=== PATIENT | female | born 1990 | race Two or more races ===

== ENCOUNTER 2021-11-19 11:58 | Emergency (ER) | payer OTHER, SELFPAY ==
[2021-11-19 12:15] VITALS: BP 146/78; PULSE 78; RESP 19; TEMP 36.6; O2SAT 98; BMI 28.0
--- NOTE | 2021-11-19 12:40 | ED_ITS ---
HPI - Eye Problem General Chief complaint: Eye Problems Stated complaint: eye injury - work related Time Seen by Provider: 11/19/21 12:38 Source: patient Limitations: no limitations History of Present Illness HPI Narrative: This is a 31-year-old female who years ago had an injury to her left cornea, has had some irritation off and on since then for which he takes Visine. This morning the patient was at work when a client need her and the left thigh and since then she has had more tearing of her left thigh, some blurred vision on the left thigh, discomfort. She denies any loss of consciousness, nausea vomiting. Related Data Previous Rx's Medication Instructions Recorded ketorolac 0.5 % eye drops (Acular) 1 drp OPHTHALMIC (EYE) QID 3 Days 11/19/21 #3 ml polymyxin B sulfate 10,000 1 drp OPHTHALMIC (EYE) Q3H 7 Days 11/19/21 unit-trimethoprim 1 mg/mL eye #10 ml drops (Polytrim) Allergies Allergy/AdvReac Type Severity Reaction Status Date / Time No Known Allergies Allergy Verified 11/19/21 12:39 Review of Systems Constitutional: Constitutional: Reports as per HPI and Denies fever(s) Eyes: Eyes: Reports as per HPI and Reports eye pain ENT: Reports system reviewed and no additional complaints, except as documented [facility] Past Medical History Medical History (Updated 11/19/21 @ 13:23 by Shaquille Owens MD) Asthma Social History Social History Advance Directives: No Advance Directives Information Provided: No Patient : No Physical Exam Vital Signs: Vital Signs: Last Vital Signs Temp 98 F 11/19/21 12:15 Pulse 78 11/19/21 12:15 Resp 19 11/19/21 12:15 BP 146/78 H 11/19/21 12:15 Pulse Ox 98 11/19/21 12:15 BMI result Body Mass Index 28.0 Const: General: no acute distress Orientation/consciousness: patient oriented x3 HEENT: Head: Yes normal to inspection Eyes: Other: Left eye with mild conjunctival injection, tearing, knows of conjunctival hematoma, no laceration, no significant lid swelling, normal visual nichols. Mild erythema to skin below left eye, no ecchymosis. Retinal exam grossly normal, no evident of vitreous hemorrhage. Patient does have very long fake eyelashes, which makes it somewhat difficult to get close to the eye with the ophthalmoscope. Examination after placing fluorescein dye, with a Wood's lamp, shows no concerning uptake. Patient does have tearing of her eye. Pupils: Equal, round and reactive pupils present Resp: Effort & Inspection: normal respiratory effort Auscultation: clear to auscultation bilaterally Cardio: Rate: regular rate Rhythm: regular rhythm Heart sounds: S1 normal heart sound present, S2 normal heart sound present, no gallops, no murmurs and no rubs Neuro: General: patient oriented x3 Cranial nerves: Yes Equal, round and reactive pupils present Course Course Course Narrative: Patient's eye was examined after placing tetracaine 2 drops to left eye, and lysing fluorescein dye, examined with a Wood's lamp. Overall impression, mild orbital contusion, borderline evidence of corneal abrasion. Will treat with Polytrim, Acular. Discharge Plan Discharge Clinical Impression: Corneal abrasion Patient Disposition: Home, Self-Care Instructions: Corneal Abrasion (ED) Additional Instructions: Use of all atrium of the Justo drops as well as the Acular drops as prescribed. If not improved in 3 days, follow-up with ophthalmology Prescriptions: New polymyxin B sulf-trimethoprim [Polytrim] 10,000 unit- 1 mg/mL drops 1 drp ophthalmic (eye) Q3H 7 Days Qty: 10 0RF Rx Instructions: while awake; do not exceed 6 doses in 24 hours ketorolac [Acular] 0.5 % drops 1 drp ophthalmic (eye) QID 3 Days Qty: 3 0RF Referrals: Momo Murray [Physician] - 5 days (As needed) Interventions: ED Discharge Assessment Last Done: 11/19/21 14:41 Discharge Date/Time: 11/19/21 14:42
[2021-11-19] MEDS: Tetracaine HCl/PF 0.5% Oph Sol 4 ML DROPS 2 DROP EYE-LEFT (13:21)
[2021-11-19] MEDS: Fluorescein Sodium STRIP 1 STRIP EYE-LEFT (13:21)
== END 2021-11-19 14:42 | disposition home or self-care (01) ==
PROVIDERS: Emergency Provider Emergency Medicine
DX: S05.02XA Injury of conjunctiva and corneal abrasion without foreign body, left eye, initial encounter (principal); H57.12 Ocular pain, left eye; X58.XXXA Exposure to other specified factors, initial encounter; Y93.9 Activity, unspecified; Y92.9 Unspecified place or not applicable; Y99.0 Civilian activity done for income or pay; Z79.899 Other long term (current) drug therapy
CPT/HCPCS: 99283

== ENCOUNTER 2022-06-13 01:15 | Outpatient (REF) | payer OTHER, SELFPAY ==
[2022-06-13 01:47] LABS: COVID-19 Test Negative (Negative); IDNOW Serial# 55D5AD1C
== END 2022-06-13 01:16 | disposition home or self-care (01) ==
LOC: HO.LAB 01:15
PROVIDERS: Visit Provider Internal Medicine
DX: Z20.822 Contact with and (suspected) exposure to COVID-19 (principal)
CPT/HCPCS: 87635

== ENCOUNTER 2022-09-18 07:06 | Outpatient (REF) | payer OTHER, SELFPAY | END 2022-09-18 07:07 | disposition home or self-care (01) | LOC: HO.LAB 07:06 | PROVIDERS: Visit Provider Internal Medicine | DX: Z20.822 Contact with and (suspected) exposure to COVID-19 (principal) | CPT/HCPCS: 0241U ==

== ENCOUNTER 2022-10-06 10:42 | Emergency (ER) | payer OTHER, SELFPAY ==
[2022-10-06 10:48] VITALS: BP 122/81; PULSE 90; RESP 19; TEMP 36.6; O2SAT 99; BMI 28.5
--- OUTSIDE RECORDS SUMMARY | 2022-10-06 11:08 | XMS_ITS | Continuity of Care Document ---
:1990 Author Organization [facility] Address [address] [place] [address]- Care Team Providers Name Role Phone Ann-Marie Ritchie MD Primary Care Physician [place] [facility] [place] 03/09/20 - 03/09/[address] [address]- [facility] Discharge Disposition: A-D/C Home Attending Physician: Leta Jackson DO Admitting Physician: Leta Jackson DO Referring Physician: Not on Staff, Referring MD Allergies, Adverse Reactions, Alerts Substance Reaction Severity Status NKA Active Immunizations Given and Recorded Vaccine Date Status Refusal Reason tetanus/diphtheria/pertussis, acel(Tdap) 03/09/20 Given tetanus/diphtheria/pertussis, acel(Tdap) 04/04/14 Given tetanus/diphtheria/pertussis, acel(Tdap) 03/26/10 Given influenza virus vaccine, inactivated 04/24/14 Given influenza virus vaccine, inactivated 04/02/12 Given Human Papillomavirus Vaccine 03/26/10 Given Human Papillomavirus Vaccine 11/28/06 Given Human Papillomavirus Vaccine 09/25/06 Given Meningococcal Conjugate Vaccine 09/25/06 Given Medications Breast Pump See Instructions, # 1 units, Maintenance, Double electric breast pump Use as directed Dx: PostpartumCare, 05/08/14 6:05:59, Compound Start Date: 05/08/14 Status: OrderedEnsure Ensure, See Instructions, # 42 can, Refills 1, Tot. Refills 1, Maintenance, 1 can bid, weight loss in , 12/20/13 8:13:38, Compound Start Date: 12/20/13 Status: Orderedibuprofen 600 mg oral tablet 1 tablet = 600 mg, By Mouth, Every 6 hours, # 30 tablet, 3 Refills, Maintenance, 05/08/14 6:05:51, Tablet Start Date: 05/08/14 Status: OrderedMirena 52 mg intrauteral device 1 each = 52 mg, Vaginally, Once, Please bring your Mirena IUD when you deliver, # 1 each, 0 Refills,Soft Stop, 03/11/14 16:09:42, 1 each Vaginally Once,Instr:Please bring your Mirena IUD when you deliver Start Date: 03/11/14 Status: OrderedNexplanon 68 mg subcutaneous implant 1 each = 68 mg, Subcutaneous Infusion, Once, # 1 each, 0 Refills, Soft Stop, 05/06/14 18:27:03, 1 each Subcutaneous Infusion Once Start Date: 05/06/14 Status: OrderedPrenatal Multivitamins with Folic Acid 1 mg oral tablet 1 tablet, By Mouth, Daily, # 90 tablet, 0 Refills, Maintenance, 12/03/13 13:31:15, Tablet Start Date: 12/03/13 Status: Ordered Problem List Condition Effective Dates Status Health Status Informant Nexplanon insertion(Confirmed)1 05/10/14 Active Infection by Trichomonas(Confirmed) Active None(Confirmed) Active 1Lot #[id number] Vital Signs Most recent to oldest 1 2 3 [Reference Range]: Oxygen Saturation [94-100 %] 100 % 100 % (03/09/20 4:06 PM) (03/09/20 12:28 PM) Pulse Rate [55-90 bpm] 68 bpm 81 bpm (03/09/20 4:06 PM) (03/09/20 12:28 PM) Blood Pressure [90-138/55-84 108/52 mm Hg 122/72 mm Hg mm Hg] (03/09/20 4:06 PM) (03/09/20 12:28 PM) Respiratory Rate [16-30 20 br/min 18 br/min 18 br/mi n br/min] (03/09/20 4:06 PM) (03/09/20 3:28 PM) (03/09/20 3:2 8 PM) Temperature [96.8-100.4 DegF] 97.5 DegF 98.1 DegF (03/09/20 4:06 PM) (03/09/20 12:28 PM) Mode of Delivery (Oxygen) Room air Room air (03/09/20 4:06 PM) (03/09/20 12:28 PM) Blood pressure sites Arm, left (03/09/20 4:06 PM) Temperature Route Oral Oral (03/09/20 4:06 PM) (03/09/20 12:28 PM) Social History Social History Type Response Smoking Status Never smoker entered on: 10/19/13 Sex
--- OUTSIDE RECORDS SUMMARY | 2022-10-06 11:08 | XMS_ITS | Continuity of Care Document ---
:1990 Author Organization [facility] Address [address] [place] [id number]- Care Team Providers Name Role Phone Faby Dockery MD, Ann-Marie Primary Care Physician [place] [facility] [place] 09/23/19 - 09/23/[address] [address]- [facility] Encounter Diagnosis Influenza A (Final) - 09/23/19 Discharge Disposition: A-D/C Home Attending Physician: Nisa Parker MD Admitting Physician: Nisa Parker MD Referring Physician: Not on Staff, Referring MD Allergies, Adverse Reactions, Alerts Substance Reaction Severity Status NKA Active Immunizations Given and Recorded Vaccine Date Status Refusal Reason influenza virus vaccine, inactivated 04/24/14 Given influenza virus vaccine, inactivated 04/02/12 Given tetanus/diphtheria/pertussis, acel(Tdap) 04/04/14 Given tetanus/diphtheria/pertussis, acel(Tdap) 03/26/10 Given Human Papillomavirus Vaccine 03/26/10 Given Human [...] Infection by Trichomonas(Confirmed) Active None(Confirmed) Active 1Lot #[id number] Vital Signs Most recent to oldest [Reference 1 2 3 Range]: Weight 68.5 kg 68.5 kg (09/23/19 7:42 PM) (09/23/19 5:58 PM) Oxygen Saturation [94-100 %] 100 % 99 % 99 % (09/23/19 7:42 PM) (09/23/19 5:58 PM) (09/23/19 5:26 P M) Pulse Rate [55-90 bpm] 81 bpm 86 bpm 104 bpm (09/23/19 7:42 PM) (09/23/19 5:58 PM) *H* (09/23/19 5:26 PM) Blood Pressure [90-138/55-84 mm 131/79 mm Hg 118/72 mm Hg Hg] (09/23/19 7:42 PM) (09/23/19 5:58 PM) Respiratory Rate [16-30 br/min] 22 br/min 19 br/min 18 br/min (09/23/19 7:42 PM) (09/23/19 5:58 PM) (09/23/19 5:26 P M) Temperature [96.8-100.4 DegF] 98.3 DegF 99.3 DegF (09/23/19 7:42 PM) (09/23/19 5:58 PM) Mode of Delivery (Oxygen) Room air Room air Room a ir (09/23/19 7:42 PM) (09/23/19 5:58 PM) (09/23/19 5:26 P M) Blood pressure sites Arm, right Arm, right (09/23/19 7:42 PM) (09/23/19 5:58 PM) Temperature Route Oral Oral (09/23/19 7:42 PM) (09/23/19 5:58 PM) Dry Weight 68.5 kg 68.5 kg (09/23/19 7:42 PM) (09/23/19 5:58 PM) Weight Obtained Via Standing scale (09/23/19 5:58 PM) Dry Weight Obtained Via Standing scale (09/23/19 5:58 PM) Social History Social History Type Response Smoking Status Never smoker entered on: 10/19/13 Sex
--- NOTE | 2022-10-06 11:16 | ED_ITS ---
HPI - General Adult General Chief complaint: General Medical Stated complaint: Travis stuck in throat Time Seen by Provider: 10/06/22 11:16 Source: patient Mode of arrival: ambulatory Limitations: no limitations History of Present Illness HPI narrative: Patient is a 31 year old assigned female at with a history of foreign body stuck in esophagus presenting to the emergency department today with another episode of having a foreign body stuck in her esophagus. Patient states that she previously had travis stuck in her throat and had to have help getting it down. Patient states that she attempted to eat travis again this morning and feels as though it is stuck again. Patient states that she can feel it in her throat and massage it down, but it almost immediately comes back up. Patient states that she is able to drink water. Patient denies any dizziness, lightheadedness, abdominal pain, nausea, vomiting, fever, chills, blurry vision, double vision, loss of vision, chest pain, difficulty breathing, shortness of breath, back pain, night sweats, pain with urination, increased urinary frequency, increased urinary urgency, blood in her urine or stool, syncope or a near syncopal episode, recent trauma or falls, bowel incontinence, bladder incontinence, bowel retention, bladder retention, or any other complaints at this time. Onset (ago): hour(s) Severity: mild Severity scale (1-10): 3 Relieving factors: none Exacerbating factors: none Associated symptoms: denies other symptoms Treatments prior to arrival: none Related Data Previous Rx's Medication Instructions Recorded ketorolac 0.5 % eye drops (Acular) 1 drp ophthalmic (eye) QID 3 days 11/19/21 #3 mL polymyxin B sulfate 10,000 1 drp ophthalmic (eye) Q3H 7 days 11/19/21 unit-trimethoprim 1 mg/mL eye #10 mL drops (Polytrim) Allergies Allergy/AdvReac Type Severity Reaction Status Date / Time No Known Allergies Allergy Verified 10/06/22 10:48 Review of Systems Constitutional: Constitutional: Reports no additional constitutional complaints, Denies chills, Denies fever(s) and Denies night sweats Eyes: Eyes: Reports no additional eye complaints, Denies blurry vision, Denies change in vision, Denies diplopia, Denies eye discharge, Denies loss of vision and Denies eye pain ENT: Denies dizziness Comments: travis stuck in esophagus Cardiovascular: Cardiovascular: Reports no additional cardiovascular complaints, Denies chest pain, Denies lightheadedness, Denies Loss of Consci ousness and Denies dyspnea Respiratory: Respiratory: Reports no additional respiratory complaints and Denies dyspnea Gastrointestinal: Gastrointestinal: Reports no additional gastrointestinal complaints, Denies abdominal pain, Denies melena, Denies hematochezia, Denies change in bowel habits and Denies change in stool character Genitourinary: Genitourinary: Denies hematuria, Denies urinary frequency, Denies dysuria, Denies urinary incontinence, Denies urinary hesitancy and Denies urinary urgency Musculoskeletal: Musculoskeletal: Reports no additional musculoskeletal complaints, Denies numbness and Denies tingling Neurologic: Denies dizziness, Denies loss of vision, Denies numbness and Denies tingling Psychiatric: Psychiatric: Reports no additional psychiatric complaints Endocrine: Endocrine: Reports no additional endocrine complaints Hematologic/Lymphatic: Hematologic/Lymphatic: Reports no additional hematologic/lymphatic complaints Allergic/Immunologic: Allergic/Immunologic: Reports no additional allergic/immunologic complaints PMFSH Past Medical History Attestation statement: The following information was validated with the patient. Source: old records reviewed and nursing notes reviewed Medical History Asthma Social History Social History Advance Directives: No Advance Directives Information Provided: Yes Physical Exam ED Vital Signs: Vital Signs - 24 hr 10/06/22 10:48 Temperature 98 F Pulse Rate 90 Respiratory Rate 19 Blood Pressure 122/81 Pulse Oximetry 99 Oxygen Delivery Method Room Air BMI result Body Mass Index 28.5 Const General: cooperative, no acute distress, alert and awake Nutritional Appearance: well nourished Orientation/consciousness: patient oriented x3 Limitations: no limitations HENMT Head: Yes normal to inspection and Yes atraumatic Ears: hearing grossly normal bilaterally and external ears normal General nose exam: Normal external nose present, no nasal discharge noted and no epistaxis Face and sinus: Yes normal facial exam, No abrasion and No laceration Mouth: Normal oral and palatal mucosa present, no drooling and no muffled voice Eyes General: appearance normal, both eyes and all related structures Periorbital: periorbital findings normal Eyelids: Yes eyelids normal Conjunctivae: conjunctivae normal Pupils: Equal, round and reactive pupils present EOM: EOMs intact bilaterally Neck Neck: Yes normal visual inspection, Yes full ROM and Yes no lymphadenopathy Chest Chest palpation & inspection: normal inspection of the chest Resp Effort & Inspection: normal respiratory effort and able to speak in complete sentences GI Inspection: Yes normal to inspection Neuro General: patient oriented x3 and moves all extremities Cranial nerves: Yes Equal, round and reactive pupils present Cognition (Neuro): normal cognition Motor exam (neuro): 5/5 motor strength present throughout Sensory Exam: Normal double simultaneous stimulation for sensation Coordination: [id number] test normal Extrem General: Yes normal to inspection, Yes full ROM and Yes capillary refill normal Psych Appearance: grossly normal Mental Status: mental status grossly normal Affect: normal affect Attitude: cooperative Thought process: Normal thought process present Thought content: Normal thought content present Insight: Good insight present (Psych) Medications Administered Discontinued Medications Generic Name Dose Route Start Last Admin Trade Name Freq PRN Reason Stop Dose Admin Glucagon 1 mg 10/06/22 11:54 10/06/22 12:06 Glucagon,Human Recombinant 1 Mg/Ml Vial IVPUSH 10/06/22 11:55 1 mg ONCE ONE Administration Nitroglycerin 0.4 mg 10/06/22 11:54 10/06/22 12:06 Nitroglycerin 0.4 Mg Tab.Subl SUBLINGUAL 10/06/22 11:55 1 dose ONCE ONE Administration Medical Decision Making Medical Decision Making [facility] Narrative: Patient is a 31 year old assigned female at with a history of food bolus stuck in esophagus presenting to the emergency department today with another episode of a food bolus being stuck in her esophagus. Patient's physical exam was unremarkable. I explained my physical exam findings to the patient. I answered all questions asked by the patient. Patient received IV Glucagon and Sublingual nitro which she stated helped her symptoms significantly. Patient states that she felt the bolus pass, completely. I stressed the importance of the patient taking her medication as prescribed. I stressed the importance of the patient following up with her primary care provider and a GI specialist. I stressed the importance of the patient returning to the emergency department immediately if her symptoms were to worsen or if she were to develop any dizziness, shortness of breath, difficulty breathing, chest pain, blurry vision, loss of vision, nausea, vomiting, abdominal pain, fever, chills, back pain, or any other complaints. Patient verbalized agreement and understanding with this treatment plan and discharge. Differential Diagnosis Differential Diagnoses: The differential diagnosis associated with the presentation includes food bolus in esophagus Discharge Plan Discharge Clinical Impression: Esophagus, foreign body Patient Disposition: Home, Self-Care Instructions: Foreign Body Ingestion (ED) Additional Instructions: STOP EATING TRAVIS Follow up with your primary care provider and a GI specialist. Return to the emergency department immediately if your symptoms worsen or if you develop any dizziness, shortness of breath, difficulty breathing, chest pain, blurry vision, loss of vision, nausea, vomiting, abdominal pain, fever, chills, back pain, or any other complaints. Prescriptions: No Action polymyxin B sulf-trimethoprim [Polytrim] 10,000 unit- 1 mg/mL drops 1 drp ophthalmic (eye) Q3H 7 Days Qty: 10 0RF Rx Instructions: while awake; do not exceed 6 doses in 24 hours ketorolac [Acular] 0.5 % drops 1 drp ophthalmic (eye) QID 3 Days Qty: 3 0RF Referrals: [facility] [place] Gastroenterology Services [Provider Group] (Call to establish and follow up with a GI specialist. ) [facility] [place] Family Medicine [Provider Group] (Call to establish and follow up with a primary care provider. If you already have a primary care provider, please follow up with them. ) [facility] [place] Primary [facility] [Provider Group] (Call to establish and follow up with a primary care provider. If you already have a primary care provider, please follow up with them. ) [facility] [place] Primary [facility] [Provider Group] (Call to establish and follow up with a primary care provider. If you already have a primary care provider, please follow up with them. ) Stand Alone Forms: Work/School Release Interventions: ED Discharge Assessment Last Done: 10/06/22 12:59 Discharge Date/Time: 10/06/22 13:00 Print Language: Icelandic
[2022-10-06] MEDS: Nitroglycerin 0.4 MG TAB.SUBL SUBLINGUAL (12:06)
== END 2022-10-06 13:00 | disposition home or self-care (01) ==
PROVIDERS: Emergency Provider Emergency Medicine
DX: T18.128A Food in esophagus causing other injury, initial encounter (principal); X58.XXXA Exposure to other specified factors, initial encounter; Y93.89 Activity, other specified; Y92.019 Unspecified place in single-family (private) house as the place of occurrence of the external cause; Y99.9 Unspecified external cause status
CPT/HCPCS: 96374; 99282; 99284; J1610

== ENCOUNTER 2022-10-20 05:38 | Emergency (ER) | payer OTHER, SELFPAY ==
--- NOTE | ~2022-10-20 | XR_ITS ---
EXAMINATION: XR CHEST CLINICAL INFORMATION: Acute, right-sided chest pain. COMPARISON: None available. TECHNIQUE: 2 views of the chest were obtained. FINDINGS: No significant abnormality is noted involving the heart, lungs, mediastinum, bony thorax or soft tissues. XR/XR chest 2V IMPRESSION: No acute cardiopulmonary process.
--- NOTE | 2022-10-20 05:40 | ECG_ITS ---
Test Reason : palpation Blood Pressure : / mmHG Vent. Rate : 064 BPM Atrial Rate : 064 BPM P-R Int : 128 ms QRS Dur : 080 ms QT Int : 402 ms P-R-T Axes : 040 046 035 degrees QTc Int : 414 ms Normal sinus rhythm Normal ECG No previous ECGs available Referred By: Generic ED Physician Electronically Signed By:NANO FLEMING
[2022-10-20 05:50] VITALS: BP 157/96; PULSE 70; RESP 16; TEMP 36.9; O2SAT 98; BMI 25.7
[2022-10-20 05:57] LABS: Basophils Percent Auto 0.3 % (0-2); Eosinophils Absolute Auto 0.3 X10*3/uL (0.0-0.4); Eosinophils Percent Auto 2.8 % (0-4); Hematocrit 38.1 % (37.0-47.0); Hemoglobin 13.2 g/dl (12.0-16.0); Imm Gran Abs Auto 0.03 X10*3/uL (0.00-0.03); Imm Gran Pct Auto 0.3 % (0.0-0.4); Lymphocytes Absolute Auto 4.4 X10*3/uL (1.2-4.9); Lymphocytes Percent Auto 47.3 % (20-40); MANUAL DIFF FLAG NO; Mean Corpuscular HGB Conc 34.6 g/dl (31.0-35.0); Mean Corpuscular Hemoglobin 30.6 pg (27.0-33.0); Mean Corpuscular Volume 88.4 fL (80.0-98.0); Mean Platelet Volume 9.3 fL (9.4-12.3); Monocytes Absolute Auto 0.4 X10*3/uL (0.1-1.2); Monocytes Percent Auto 4.4 % (2-11); Neutrophils Absolute Auto 4.1 x10*3/uL (2.0-8.3); Neutrophils Percent Auto 44.9 % (45-73); Platelet Count 369 X10*3/uL (160-400); Red Blood Count 4.31 X10*6/uL (4.20-5.50); Red Cell Distribution Width 12.6 % (11.0-16.0); White Blood Count 9.2 X10*3/uL (4.8-10.8)
[2022-10-20 06:16] LABS: Anion Gap 18 (12-20); Blood Urea Nitrogen 17 mg/dL (9-16); Calcium 9.9 mg/dL (8.4-10.2); Carbon Dioxide 20 mmol/L (22-29); Chloride 106 mmol/L (96-108); Creatinine Clr Calc Pharmacy 104.8; Estimated Glomerular Filt Rate > 60; Glucose Random 101 mg/dL (60-115); Potassium 4.2 mmol/L (3.3-5.1); Sodium 140 mmol/L (135-145)
[2022-10-20 06:21] LABS: Troponin-I High Sensitivity < 3.5 ng/L (<3.5-17.0)
[2022-10-20 06:37] VITALS: BP 129/80; PULSE 61; RESP 15; TEMP 36.7; O2SAT 98
--- NOTE | 2022-10-20 07:13 | ED.CHESTPAIN ---
HPI - Chest Pain General Chief Complaint: Chest Pain Stated Complaint: heart problems Time Seen by Provider: 10/20/22 06:42 Source: patient Mode of arrival: ambulatory Limitations: no limitations History of Present Illness complaint: chest pain Onset (ago): hour(s) (3) Prior episodes: No Onset: during rest Pain location: left chest Pain radiation: back Severity: severe Quality: sharp and other (Pinching) Relieving factors: nothing Exacerbating factors: nothing Treatment prior to arrival: none Risk Factors Coronary artery disease risk factors: none Related Data Previous Rx's Medication Instructions Recorded meloxicam 15 mg tablet 15 mg PO DAILY #14 tabs 10/20/22 Allergies Allergy/AdvReac Type Severity Reaction Status Date / Time No Known Allergies Allergy Verified 10/20/22 05:53 [facility] Past Medical History Medical History Asthma Social History Social History Smoked in Last 30 Days: No Use of substances other than those prescribed or required for medical reasons: No Advance Directives: Yes Advance Directives Information Provided: Yes Advance Directives on File: No Physical Exam Vital Signs: Vital Signs: Last Vital Signs Temp 98.1 F 10/20/22 06:37 Pulse 61 10/20/22 06:37 Resp 15 10/20/22 06:37 BP 129/80 10/20/22 06:37 Pulse Ox 98 10/20/22 06:37 O2 Del Method Room Air 10/20/22 06:37 BMI result Body Mass Index 25.7 GEN: Well developed, no acute distress, alert, oriented HEENT: Normocephalic, atraumatic, normal external ears, nose appears normal, no oropharyngeal edema or exudates Eyes: Normal to appearance Neck: Supple, no lymphadenopathy Respiratory: Talks in complete sentences, no respiratory distress, clear to auscultation bilaterally Cardiovascular: Regular rate and rhythm, no murmurs rubs or gallops Abdomen: Soft, nontender, nondistended, no guarding, no rebound Back: No CVA tenderness Extremities: No clubbing cyanosis or edema Neurologic: No focal neurologic deficits, cranial nerves 2-12 intact, strength is 5/5 bilaterally, gait normal Skin: No rash Chest: Reproducible left anterior midclavicular line just inferior to the breast tenderness to palpation Course Course Course Narrative: 31-year-old female with no major medical problems presents with left-sided chest pain. Pain started at rest approximately 2-3 hours ago. Was a pinching sensation. When away after 2 hours. There are no other associated symptoms. Her examination revealed point tenderness to left anterior chest wall, mid clavicular line just inferior to the breast. This is most consistent with acute costochondritis. Laboratory analysis was negative cardiac enzymes. She has noted risk factors for PE. Her PERC score is 0. She has no lower extremity edema. Doubt PE or DVT. No indication for emergent CT angiogram, V/Q scan. Patient will be treated with anti-inflammatory pain medications and follow-up with her primary care provider as needed. Medical Decision Making Medical Decision Making [facility] Narrative: Patient presents with sharp pinching chest pain to left anterior inferior chest. This most likely secondary to acute costochondritis. The differential diagnosis includes costochondritis, chest wall pain, low suspicion for ACS, acute PE, perc criteria negative, pericarditis, myocarditis, dissection, pneumothorax, pneumonia or other infectious process. The presentation is not consistent with other acute emergent causes of chest pain at this time cardiac enzyme testing was already undertaken was negative. Chest x-ray has been ordered for further evaluation. Differential Diagnosis Differential Diagnoses: The differential diagnosis associated with the presentation includes (Costochondritis, chest wall pain, ACS, PE, pericarditis, myocarditis, pneumonia) Admission/Observation Consideration of admission/observation: Escalation of care including admission/observation considered Lab Data [facility] Lab Attestation statement: I reviewed the patient's lab results. 10/20/22 05:53 10/20/22 05:53 Labs: Lab Results 10/20/22 10/20/22 10/20/22 Range/Units 05:53 05:53 05:53 WBC 9.2 (4.8-10.8) X10*3/uL RBC 4.31 (4.20-5.50) X10*6/uL Hgb 13.2 (12.0-16.0) g/dl Hct 38.1 (37.0-47.0) % MCV 88.4 (80.0-98.0) fL MCH 30.6 (27.0-33.0) pg MCHC 34.6 (31.0-35.0) g/dl RDW 12.6 (11.0-16.0) % Plt Count 369 (160-400) X10*3/uL MPV 9.3 L (9.4-12.3) fL Immature Gran % (Auto) 0.3 (0.0-0.4) % Neut % (Auto) 44.9 L (45-73) % Lymph % (Auto) 47.3 H (20-40) % [place] % (Auto) 4.4 (2-11) % Eos % (Auto) 2.8 (0-4) % Baso % (Auto) 0.3 (0-2) % Lymph # (Auto) 4.4 (1.2-4.9) X10*3/uL [place] # (Auto) 0.4 (0.1-1.2) X10*3/uL Eos # (Auto) 0.3 (0.0-0.4) X10*3/uL Baso # (Auto) 0.0 (0.0-0.2) X10*3/uL Abs Immat Gran (auto) 0.03 (0.00-0.03) X10*3/uL Absolute Neuts (auto) 4.1 (2.0-8.3) x10*3/uL Absolute Nucleated RBC 0.000 (0.0-0.012) X10*3/uL Nucleated RBC % (auto) 0.0 (0.0-0.2) /100WBC Sodium 140 (135-145) mmol/L Potassium 4.2 (3.3-5.1) mmol/L Chloride 106 (96-108) mmol/L Carbon Dioxide 20 L (22-29) mmol/L Anion Gap 18 (12-20) BUN 17 H (9-16) mg/dL Creatinine 0.73 (0.5-1.4) mg/dL Estim Creat Clear Calc 104.8 Estimated GFR > 60 Random Glucose 101 (60-115) mg/dL Calcium 9.9 (8.4-10.2) mg/dL Troponin I High Sens < 3.5 (<3.5-17.0) ng/L Independent Interpretation I performed an independent interpretation of an: EKG (Normal sinus rhythm heart rate 64, normal intervals, no acute ST elevations depressions normal EKG) and Plain X-Ray Tests considered The following testing was considered but not selected: D-dimer, CT angiogram Prescription Management I considered prescription management with: Pain Medication Discharge Plan Discharge Clinical Impression: Costalchondritis Patient Disposition: Home, Self-Care Instructions: Costochondritis (ED) Prescriptions: New meloxicam 15 mg tablet 15 mg PO DAILY Qty: 14 0RF Discontinued polymyxin B sulf-trimethoprim [Polytrim] 10,000 unit- 1 mg/mL drops 1 drp ophthalmic (eye) Q3H 7 Days Qty: 10 0RF Rx Instructions: while awake; do not exceed 6 doses in 24 hours ketorolac [Acular] 0.5 % drops 1 drp ophthalmic (eye) QID 3 Days Qty: 3 0RF Referrals: Physician,Unknown J [Primary Care Provider] -
[2022-10-20 07:55] VITALS: BP 141/88; PULSE 64; RESP 18
[2022-10-20] MEDS: Ibuprofen 600 MG TABLET PO (07:57)
== END 2022-10-20 08:51 | disposition home or self-care (01) ==
PROVIDERS: Emergency Provider Emergency Medicine
DX: M94.0 Chondrocostal junction syndrome [Tietze] (principal); R00.2 Palpitations; R07.89 Other chest pain; Z79.899 Other long term (current) drug therapy
CPT/HCPCS: 36415; 71046; 80048; 84484; 85025; 93005; 99284; 99285

== ENCOUNTER 2023-02-20 08:44 | Emergency (ER) | payer MEDICAID, SELFPAY ==
[2023-02-20 08:47] VITALS: BP 129/92; PULSE 80; RESP 20; TEMP 36.1; O2SAT 97; BMI 30.1
--- NOTE | 2023-02-20 08:54 | ECG_ITS ---
Test Reason : CP Blood Pressure : / mmHG Vent. Rate : 072 BPM Atrial Rate : 072 BPM P-R Int : 120 ms QRS Dur : 088 ms QT Int : 404 ms P-R-T Axes : 035 032 017 degrees QTc Int : 442 ms Normal sinus rhythm with sinus arrhythmia Normal ECG When compared with ECG of 20-OCT-2022 05:41, No significant change was found Referred By: Generic ED Physician Electronically Signed By:NANO FLEMING
[2023-02-20 09:15] LABS: MANUAL DIFF FLAG NO
[2023-02-20 09:17] LABS: Appearance Urine Cloudy; Color Urine Yellow; Glucose Urine UA Negative (Negative); Leukocyte Esterase Urine Moderate (2+) (Negative); Nitrite Urine Negative (Negative); PH 5.5 (5.0-9.0); Specific Gravity - Urine 1.025 (1.005-1.025); UMIC TRIGGER UACC YES; Urine Blood Small (1+) (Negative); Urine Ketones Trace mg/dL (Negative); Urine Protein Negative (Neg-Trace)
[2023-02-20 09:18] LABS: Basophils Percent Auto 0.3 % (0-2); Eosinophils Absolute Auto 0.1 X10*3/uL (0.0-0.4); Hematocrit 38.6 % (37.0-47.0); Hemoglobin 13.2 g/dl (12.0-16.0); Imm Gran Abs Auto 0.06 X10*3/uL (0.00-0.03); Imm Gran Pct Auto 0.5 % (0.0-0.4); Lymphocytes Absolute Auto 3.3 X10*3/uL (1.2-4.9); Lymphocytes Percent Auto 30.3 % (20-40); Mean Corpuscular HGB Conc 34.2 g/dl (31.0-35.0); Mean Corpuscular Hemoglobin 30.3 pg (27.0-33.0); Mean Corpuscular Volume 88.7 fL (80.0-98.0); Mean Platelet Volume 9.7 fL (9.4-12.3); Monocytes Absolute Auto 0.5 X10*3/uL (0.1-1.2); Monocytes Percent Auto 4.1 % (2-11); Neutrophils Percent Auto 63.8 % (45-73); Platelet Count 343 X10*3/uL (160-400); Red Blood Count 4.35 X10*6/uL (4.20-5.50)
[2023-02-20 09:19] LABS: UPreg QC Valid YES; Urine Pregnancy NEGATIVE (NEGATIVE)
[2023-02-20 09:20] LABS: Bacteria Urine 4+ (None Seen); Hyaline Casts Urine 0-2 /LPF (0-2); Squamous Epithelial Cell Urine >20 /HPF (0-2); UACC Culture Trigger YES; WBC Urine 21-50 /HPF (0-5)
[2023-02-20 09:34] LABS: Alanine Aminotransferase 13 U/L (0-31); Albumin Level 4.5 g/dL (3.5-5.0); Alkaline Phosphatase 66 U/L (39-117); Anion Gap 17 (12-20); Aspartate Amino Transferase 11 U/L (5-31); Bilirubin Total 0.4 mg/dL (0.0-1.0); Blood Urea Nitrogen 10 mg/dL (9-16); Calcium 9.6 mg/dL (8.4-10.2); Carbon Dioxide 19 mmol/L (22-29); Chloride 108 mmol/L (96-108); Creatinine Clr Calc Pharmacy 118.2; Estimated Glomerular Filt Rate > 60; Glucose Random 96 mg/dL (60-115); Potassium 3.6 mmol/L (3.3-5.1); Sodium 140 mmol/L (135-145); Total Protein 7.6 g/dL (6.5-8.0)
--- NOTE | 2023-02-20 09:34 | ED.GENADULT ---
HPI - General Adult General Chief complaint: General Medical Stated complaint: congestion blurred vision nausea cough multi compl Time Seen by Provider: 02/20/23 09:18 Source: patient Limitations: no limitations History of Present Illness HPI narrative: 32-year-old female presents with multiple complaints. Symptoms started approximately 2 weeks ago. Symptoms include sinus congestion, headaches, nausea, vomiting, congestion, cough, shortness of breath, asthma related symptoms, nausea vomiting and diarrhea. Symptoms are severe. They are daily. There is no clear exacerbating features. They have been improved by some [id number] and prescription medications. 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 Unclear if there been any sick contacts. She has had some subjective fevers. Her diarrhea and vomiting have been nonbloody in nature. Patient reports not being able to eat or drink much due to consistent emesis. She is now feeling lightheaded as a result. Patient denies any abdominal pain. Related Data Previous Rx's Medication Instructions Recorded meloxicam 15 mg tablet 15 mg PO DAILY #14 tabs 10/20/22 levofloxacin 500 mg tablet 500 mg PO DAILY #7 tabs 02/20/23 ondansetron 4 mg disintegrating 4 mg PO Q8H PRN nausea and 02/20/23 tablet vomiting #10 tabs Allergies Allergy/AdvReac Type Severity Reaction Status Date / Time No Known Allergies Allergy Verified 10/20/22 05:53 Review of Systems Review of Systems: CONSTITUTIONAL: Denies weight loss, fever and chills. HEENT: Denies + in vision and hearing. RESPIRATORY: + SOB and cough. CV: Denies palpitations + CP. GI: + abdominal pain, nausea, vomiting and diarrhea. : Denies dysuria and urinary frequency. MSK: Denies myalgia and joint pain. SKIN: Denies rash and pruritus. NEUROLOGICAL: + headache - syncope. PSYCHIATRIC: Denies recent changes in mood. Denies anxiety and depression. All other ROS are negative unless in HPI PMFSH Past Medical History Medical History (Updated 02/20/23 @ 11:01 by Bhavin Estes MD) Asthma Social History Social History Smoked in Last 30 Days: No Use of substances other than those prescribed or required for medical reasons: No Advance Directives: No Advance Directives Information Provided: No Physical Exam ED Vital Signs: Vital Signs - 24 hr 02/20/23 08:47 02/20/23 10:40 Temperature 97.0 F 98.2 F Pulse Rate 80 60 Respiratory Rate 20 16 Blood Pressure 129/92 H 138/83 Pulse Oximetry 97 99 Oxygen Delivery Method Room Air Room Air BMI result Body Mass Index 30.1 GEN: Well developed, no acute distress, alert, oriented HEENT: Normocephalic, atraumatic, normal external ears, nose appears normal, no oropharyngeal edema or exudates Eyes: Normal to appearance Neck: Supple, no lymphadenopathy Respiratory: Talks in complete sentences, no respiratory distress, clear to auscultation bilaterally Cardiovascular: Regular rate and rhythm, no murmurs rubs or gallops Abdomen: Soft, nontender, nondistended, no guarding, no rebound Back: No CVA tenderness Extremities: No clubbing cyanosis or edema Neurologic: No focal neurologic deficits, cranial nerves 2-12 intact, strength is 5/5 bilaterally Skin: No rash Medical Decision Making Medical Decision Making [facility] Narrative: 32-year-old female presents with a significant number of complaints including congestion, cough, shortness of breath, nausea, vomiting, diarrhea, anorexia. Her examination is benign. This is suggestive of viral syndrome. This has been going on for quite some time. However, since a significant amount of her complaints or sinus related, patient may warrant antibiotics. I certainly believe that we can give her a significant amount of assistance in terms of hydration, antiemetics, analgesia, etc. to improve her current set of symptoms. In the meantime, differential diagnosis could include viral syndrome, bronchitis, sinusitis, systemic disease, inflammatory process. Will check routine laboratory analysis and provide analgesia, IV fluids, antiemetics, steroids, p.r.n. medications. Will re-evaluate the patient but I suspect she will be able to go home. For any significant abnormalities the lab testing, patient may warrant hospitalization. Differential Diagnosis Differential Diagnoses: The differential diagnosis associated with the presentation includes (See above) Admission/Observation Consideration of admission/observation: Escalation of care including admission/observation considered Lab Data [facility] Lab Attestation statement: I reviewed the patient's lab results. 02/20/23 09:10 02/20/23 09:10 Labs: Lab Results 02/20/23 02/20/23 02/20/23 Range/Units 09:10 09:10 09:10 WBC 11.0 H (4.8-10.8) X10*3/uL RBC 4.35 (4.20-5.50) X10*6/uL Hgb 13.2 (12.0-16.0) g/dl Hct 38.6 (37.0-47.0) % MCV 88.7 (80.0-98.0) fL MCH 30.3 (27.0-33.0) pg MCHC 34.2 (31.0-35.0) g/dl RDW 12.0 (11.0-16.0) % Plt Count 343 (160-400) X10*3/uL MPV 9.7 (9.4-12.3) fL Immature Gran % (Auto) 0.5 H (0.0-0.4) % Neut % (Auto) 63.8 (45-73) % Lymph % (Auto) 30.3 (20-40) % [place] % (Auto) 4.1 (2-11) % Eos % (Auto) 1.0 (0-4) % Baso % (Auto) 0.3 (0-2) % Lymph # (Auto) 3.3 (1.2-4.9) X10*3/uL [place] # (Auto) 0.5 (0.1-1.2) X10*3/uL Eos # (Auto) 0.1 (0.0-0.4) X10*3/uL Baso # (Auto) 0.0 (0.0-0.2) X10*3/uL Abs Immat Gran (auto) 0.06 H (0.00-0.03) X10*3/uL Absolute Neuts (auto) 7.0 (2.0-8.3) x10*3/uL Absolute Nucleated RBC 0.000 (0.0-0.012) X10*3/uL Nucleated RBC % (auto) 0.0 (0.0-0.2) /100WBC Sodium 140 (135-145) mmol/L Potassium 3.6 (3.3-5.1) mmol/L Chloride 108 (96-108) mmol/L Carbon Dioxide 19 L (22-29) mmol/L Anion Gap 17 (12-20) BUN 10 (9-16) mg/dL Creatinine 0.64 (0.5-1.4) mg/dL Estim Creat Clear Calc 118.2 Estimated GFR > 60 Random Glucose 96 (60-115) mg/dL Calcium 9.6 (8.4-10.2) mg/dL Total Bilirubin 0.4 (0.0-1.0) mg/dL AST 11 (5-31) U/L ALT 13 (0-31) U/L Alkaline Phosphatase 66 (39-117) U/L Troponin I High Sens < 2.7 (<3.5-17.0) ng/L Total Protein 7.6 (6.5-8.0) g/dL Albumin 4.5 (3.5-5.0) g/dL Urine Color Urine Appearance Urine pH (5.0-9.0) Ur Specific Alexis (1.005-1.025) Urine Protein (Neg-Trace) mg/dL Urine Glucose (UA) (Negative) mg/dL Urine Ketones (Negative) mg/dL Urine Blood (Negative) Urine Nitrite (Negative) Ur Leukocyte Esterase (Negative) Urine RBC (0-2) /HPF Urine WBC (0-5) /HPF Ur Squamous Epith Cells (0-2) /HPF Urine Bacteria (None Seen) Hyaline Casts (0-2) /LPF Urine Test (NEGATIVE) COVID-19 (JASBIR) (Negative) COVID-19 Clin Com 02/20/23 02/20/23 02/20/23 Range/Units 09:10 09:10 09:10 WBC (4.8-10.8) X10*3/uL RBC (4.20-5.50) X10*6/uL Hgb (12.0-16.0) g/dl Hct (37.0-47.0) % MCV (80.0-98.0) fL MCH (27.0-33.0) pg MCHC (31.0-35.0) g/dl RDW (11.0-16.0) % Plt Count (160-400) X10*3/uL MPV (9.4-12.3) fL Immature Gran % (Auto) (0.0-0.4) % Neut % (Auto) (45-73) % Lymph % (Auto) (20-40) % [place] % (Auto) (2-11) % Eos % (Auto) (0-4) % Baso % (Auto) (0-2) % Lymph # (Auto) (1.2-4.9) X10*3/uL [place] # (Auto) (0.1-1.2) X10*3/uL Eos # (Auto) (0.0-0.4) X10*3/uL Baso # (Auto) (0.0-0.2) X10*3/uL Abs Immat Gran (auto) (0.00-0.03) X10*3/uL Absolute Neuts (auto) (2.0-8.3) x10*3/uL Absolute Nucleated RBC (0.0-0.012) X10*3/uL Nucleated RBC % (auto) (0.0-0.2) /100WBC Sodium (135-145) mmol/L Potassium (3.3-5.1) mmol/L Chloride (96-108) mmol/L Carbon Dioxide (22-29) mmol/L Anion Gap (12-20) BUN (9-16) mg/dL Creatinine (0.5-1.4) mg/dL Estim Creat Clear Calc Estimated GFR Random Glucose (60-115) mg/dL Calcium (8.4-10.2) mg/dL Total Bilirubin (0.0-1.0) mg/dL AST (5-31) U/L ALT (0-31) U/L Alkaline Phosphatase (39-117) U/L Troponin I High Sens (<3.5-17.0) ng/L Total Protein (6.5-8.0) g/dL Albumin (3.5-5.0) g/dL Urine Color Yellow Urine Appearance Cloudy Urine pH 5.5 (5.0-9.0) Ur Specific [place] 1.025 (1.005-1.025) Urine Protein Negative (Neg-Trace) mg/dL Urine Glucose (UA) Negative (Negative) mg/dL Urine Ketones Trace (Negative) mg/dL Urine Blood Small (1+) H (Negative) Urine Nitrite Negative (Negative) Ur Leukocyte Esterase Moderate (2+) H (Negative) Urine RBC 6-10 H (0-2) /HPF Urine WBC 21-50 H (0-5) /HPF Ur Squamous Epith Cells >20 (0-2) /HPF Urine Bacteria 4+ (None Seen) Hyaline Casts 0-2 (0-2) /LPF Urine Test NEGATIVE (NEGATIVE) COVID-19 (JASBIR) Negative (Negative) COVID-19 Clin Com See Note Independent Interpretation I performed an independent interpretation of an: EKG (Normal sinus rhythm heart rate 72, sinus arrhythmia, normal intervals, no acute ST acute ST elevations or depressions) Prescription Management I considered prescription management with: Pain Medication, Antiviral and Antibiotic Discharge Plan Discharge Clinical Impression: Sinusitis, Nausea & vomiting, Generalized weakness, UTI (urinary tract infection) Patient Disposition: Home, Self-Care Instructions: Urinary Tract Infection in Women (DC), Sinusitis (ED), Acute Nausea and Vomiting (ED), Weakness (ED) Prescriptions: New levofloxacin 500 mg tablet 500 mg PO DAILY Qty: 7 0RF ondansetron 4 mg tablet,disintegrating 4 mg PO Q8H PRN (Reason: nausea and vomiting) Qty: 10 0RF No Action meloxicam 15 mg tablet 15 mg PO DAILY Qty: 14 0RF Referrals: Bhavin Estes MD [Emergency Provider] - (Primary care provider in 3-5 days)
[2023-02-20 09:42] LABS: Troponin-I High Sensitivity < 2.7 ng/L (<3.5-17.0)
[2023-02-20 09:52] LABS: COVID-19 Test Negative (Negative); IDNOW Serial# BCCEAD1C
[2023-02-20 10:40] VITALS: BP 138/83; PULSE 60; RESP 16; TEMP 36.8; O2SAT 99
[2023-02-20] MEDS: Acetaminophen 325 MG TABLET 975 MG PO (10:44)
[2023-02-20] MEDS: Ketorolac Tromethamine 15 MG/ML VIAL IVPUSH (10:46)
[2023-02-20] MEDS: dexAMETHasone sod phosphate 10 MG/ML VIAL IVPUSH (10:47)
[2023-02-20] MEDS: ondansetron HCL 4 MG/2 ML VIAL IVPUSH (10:49)
[2023-02-20] MEDS: levoFLOXacin/D5W 500 MG/100 ML PIGGYBACK 100 MG IV (10:55)
[2023-02-20] MEDS: 0.9 % Sodium Chloride 1,000 ML 999 ML IV (10:58)
[2023-02-20 12:00] VITALS: RESP 16
[2023-02-21 23:23] LABS: Lyme Abs Screen <0.90 index
== END 2023-02-20 12:26 | disposition home or self-care (01) ==
PROVIDERS: Emergency Provider Emergency Medicine
DX: N39.0 Urinary tract infection, site not specified (principal); J32.9 Chronic sinusitis, unspecified; R11.2 Nausea with vomiting, unspecified; R53.1 Weakness; R06.02 Shortness of breath; Z20.822 Contact with and (suspected) exposure to COVID-19; Z79.899 Other long term (current) drug therapy; J45.909 Unspecified asthma, uncomplicated
CPT/HCPCS: 36415; 80053; 81001; 81025; 84484; 85025; 86617; 86618; 87086; 87635; 93005; 96365; 96375; 99284; 99285; J1100; J1885; J1956; J2405

== ENCOUNTER → 2023-02-20 08:54 | Outpatient (BNV) | payer MEDICAID, SELFPAY | PROVIDERS: Emergency Provider Emergency Medicine; Visit Provider Internal Medicine | DX: R07.9 Chest pain, unspecified (principal) | CPT/HCPCS: 93010 ==

== ENCOUNTER 2023-02-23 22:15 | Emergency (ER) | payer MEDICAID, SELFPAY ==
[2023-02-23 22:23] VITALS: BP 108/75; PULSE 86; RESP 18; TEMP 36.6; O2SAT 96; BMI 29.4
[2023-02-23 22:53] LABS: MANUAL DIFF FLAG NO
[2023-02-23 22:56] LABS: Basophils Percent Auto 0.3 % (0-2); Eosinophils Absolute Auto 0.1 X10*3/uL (0.0-0.4); Eosinophils Percent Auto 0.8 % (0-4); Hematocrit 40.2 % (37.0-47.0); Hemoglobin 13.5 g/dl (12.0-16.0); Imm Gran Abs Auto 0.06 X10*3/uL (0.00-0.03); Imm Gran Pct Auto 0.5 % (0.0-0.4); Lymphocytes Absolute Auto 4.2 X10*3/uL (1.2-4.9); Lymphocytes Percent Auto 36.1 % (20-40); Mean Corpuscular HGB Conc 33.6 g/dl (31.0-35.0); Mean Corpuscular Hemoglobin 29.9 pg (27.0-33.0); Mean Corpuscular Volume 88.9 fL (80.0-98.0); Mean Platelet Volume 9.6 fL (9.4-12.3); Monocytes Absolute Auto 0.5 X10*3/uL (0.1-1.2); Monocytes Percent Auto 4.1 % (2-11); Neutrophils Absolute Auto 6.7 x10*3/uL (2.0-8.3); Neutrophils Percent Auto 58.2 % (45-73); Platelet Count 339 X10*3/uL (160-400); Red Blood Count 4.52 X10*6/uL (4.20-5.50); Red Cell Distribution Width 12.4 % (11.0-16.0); White Blood Count 11.5 X10*3/uL (4.8-10.8)
[2023-02-23 23:11] LABS: Alanine Aminotransferase 11 U/L (0-31); Albumin Level 4.5 g/dL (3.5-5.0); Alkaline Phosphatase 59 U/L (39-117); Anion Gap 17 (12-20); Aspartate Amino Transferase 11 U/L (5-31); Bilirubin Total 0.2 mg/dL (0.0-1.0); Blood Urea Nitrogen 15 mg/dL (9-16); Calcium 9.7 mg/dL (8.4-10.2); Carbon Dioxide 21 mmol/L (22-29); Chloride 106 mmol/L (96-108); Creatinine Clr Calc Pharmacy 105.2; Estimated Glomerular Filt Rate > 60; Glucose Random 107 mg/dL (60-115); Sodium 140 mmol/L (135-145); Total Protein 7.4 g/dL (6.5-8.0)
[2023-02-23 23:13] LABS: COVID-19 Test Negative (Negative); IDNOW Serial# 6674DD1D
--- NOTE | 2023-02-24 01:10 | ED.GENADULT ---
HPI - General Adult General Chief complaint: General Medical Stated complaint: Sinusitis/n/v/weakness/UTI Time Seen by Provider: 02/24/23 00:33 Source: patient Mode of arrival: ambulatory Limitations: no limitations History of Present Illness HPI narrative: Patient had mild cold symptoms diagnosed as UTI on 02/20 urine culture was contaminated started on Levaquin comes here with diarrhea and painful hemorrhoid Related Data Previous Rx's Medication Instructions Recorded meloxicam 15 mg tablet 15 mg PO DAILY #14 tabs 10/20/22 levofloxacin 500 mg tablet 500 mg PO DAILY #7 tabs 02/20/23 ondansetron 4 mg disintegrating 4 mg PO Q8H PRN nausea and 02/20/23 tablet vomiting #10 tabs dicyclomine 20 mg tablet 20 mg PO TID PRN abdominal pain 02/24/23 #14 tabs hydrocortisone acetate 25 mg 25 mg MT BID #12 ea 02/24/23 rectal suppository (Anusol-HC) oxycodone 5 mg tablet 5 mg PO Q6H PRN pain #20 tabs 02/24/23 Allergies Allergy/AdvReac Type Severity Reaction Status Date / Time No Known Allergies Allergy Verified 02/23/23 22:23 Review of Systems Review of Systems: Yes all other systems are reviewed and are negative [facility] Past Medical History Medical History Asthma Social History Social History Alcohol intake: never Smoked in Last 30 Days: No Use of substances other than those prescribed or required for medical reasons: No Advance Directives: No Advance Directives Information Provided: Yes Patient : No Physical Exam ED Vital Signs: Vital Signs - 24 hr 02/23/23 22:23 Temperature 97.8 F Pulse Rate 86 Respiratory Rate 18 Blood Pressure 108/75 Pulse Oximetry 96 Oxygen Delivery Method Room Air BMI result Body Mass Index 29.4 Appearance: Alert. Oriented X3. No acute distress. ENT: Pharynx normal. Oral Mucosa moist Neck: Normal inspection. Neck supple. CVS: Normal heart rate and rhythm. Pulses normal. Respiratory: No respiratory distress. Equal air entry bilateral, no wheezing/rales/rhonchi Abdomen: Soft and nontender. Bowel sounds are present, no mass palpable, no CVA tenderness rectal: Thrombosed hemorrhoid painful Skin: Skin warm and dry. Normal skin color. Normal skin turgor. Extremities: No lower extremity edema. No calf tenderness Neuro: Oriented X 3. No motor deficit. Procedures Abscess I/D Site: carmine-rectal (Thrombosed external hemorrhoid) and other Local Anesthetic: lidocaine 1% Amount of anesthesia used (mL): 4 Technique: incised with blade Medical Decision Making Lab Data 02/23/23 22:47 02/23/23 22:47 Labs: Lab Results 02/23/23 02/23/23 02/23/23 Range/Units 22:43 22:47 22:47 WBC 11.5 H (4.8-10.8) X10*3/uL RBC 4.52 (4.20-5.50) X10*6/uL Hgb 13.5 (12.0-16.0) g/dl Hct 40.2 (37.0-47.0) % MCV 88.9 (80.0-98.0) fL MCH 29.9 (27.0-33.0) pg MCHC 33.6 (31.0-35.0) g/dl RDW 12.4 (11.0-16.0) % Plt Count 339 (160-400) X10*3/uL MPV 9.6 (9.4-12.3) fL Immature Gran % (Auto) 0.5 H (0.0-0.4) % Neut % (Auto) 58.2 (45-73) % Lymph % (Auto) 36.1 (20-40) % [place] % (Auto) 4.1 (2-11) % Eos % (Auto) 0.8 (0-4) % Baso % (Auto) 0.3 (0-2) % Lymph # (Auto) 4.2 (1.2-4.9) X10*3/uL [place] # (Auto) 0.5 (0.1-1.2) X10*3/uL Eos # (Auto) 0.1 (0.0-0.4) X10*3/uL Baso # (Auto) 0.0 (0.0-0.2) X10*3/uL Abs Immat Gran (auto) 0.06 H (0.00-0.03) X10*3/uL Absolute Neuts (auto) 6.7 (2.0-8.3) x10*3/uL Absolute Nucleated RBC 0.000 (0.0-0.012) X10*3/uL Nucleated RBC % (auto) 0.0 (0.0-0.2) /100WBC Sodium 140 (135-145) mmol/L Potassium 4.0 (3.3-5.1) mmol/L Chloride 106 (96-108) mmol/L Carbon Dioxide 21 L (22-29) mmol/L Anion Gap 17 (12-20) BUN 15 (9-16) mg/dL Creatinine 0.71 (0.5-1.4) mg/dL Estim Creat Clear Calc 105.2 Estimated GFR > 60 Random Glucose 107 (60-115) mg/dL Calcium 9.7 (8.4-10.2) mg/dL Total Bilirubin 0.2 (0.0-1.0) mg/dL AST 11 (5-31) U/L ALT 11 (0-31) U/L Alkaline Phosphatase 59 (39-117) U/L Total Protein 7.4 (6.5-8.0) g/dL Albumin 4.5 (3.5-5.0) g/dL COVID-19 (JASBIR) Negative (Negative) COVID-19 Clin Com See Note Discharge Plan Discharge Clinical Impression: External hemorrhoid, thrombosed Patient Disposition: Home, Self-Care Instructions: Hemorrhoids (DC) Additional Instructions: Avoid constipation/straining Anusol suppository twice daily till heals completely Follow with PCP/surgeon Stop levaquin Prescriptions: New hydrocortisone acetate [Anusol-HC] 25 mg suppository 25 mg MT BID Qty: 12 0RF dicyclomine 20 mg tablet 20 mg PO TID PRN (Reason: abdominal pain) Qty: 14 0RF oxycodone 5 mg tablet 5 mg PO Q6H PRN (Reason: pain) Qty: 20 0RF Rx Instructions: Partial Fill upon patient request. No Action levofloxacin 500 mg tablet 500 mg PO DAILY Qty: 7 0RF ondansetron 4 mg tablet,disintegrating 4 mg PO Q8H PRN (Reason: nausea and vomiting) Qty: 10 0RF meloxicam 15 mg tablet 15 mg PO DAILY Qty: 14 0RF Referrals: Jonathan Carey MD [Physician] - 1 week
[2023-02-24] MEDS: Dicyclomine HCl 10 MG CAPSULE 20 MG PO (01:56)
[2023-02-24] MEDS: oxyCODONE HCl Immed Release 5 MG TABLET 10 MG PO (01:57)
[2023-02-24] MEDS: Lidocaine HCl 1 % MPF 2 ML VIAL INFILTRATI ×2 (01:57→01:58)
== END 2023-02-24 02:20 | disposition home or self-care (01) ==
PROVIDERS: Emergency Provider Internal Medicine
DX: K64.5 Perianal venous thrombosis (principal)
CPT/HCPCS: 46083; 80053; 85025; 87635; 99284

== ENCOUNTER 2023-08-24 07:05 | Emergency (ER) | payer MEDICAID, SELFPAY ==
[2023-08-24 07:07] VITALS: BP 132/69; PULSE 63; RESP 16; TEMP 36.3; O2SAT 97; BMI 29.8
--- NOTE | 2023-08-24 07:45 | PC.NURSE ---
Alert and oriented, reports dyed hair 3 days ago and woke up with a sore scalp, scabs on scalp, a headache, sore throat, and swelling on right side of neck. Reports went to dentist yesterday and xrays were taken which showed no infection. Reports some sob.
--- NOTE | 2023-08-24 07:51 | ED_ITS ---
HPI - General Adult General Chief complaint: General Medical Stated complaint: Infection Time Seen by Provider: 08/24/23 07:51 History of Present Illness HPI narrative: The patient is a 32-year-old female who says that for 5 days ago she used a hair dye. She then developed an itchy rash on the back of her neck. She subsequently developed a lot of pain on the right side of her neck and her face. Yesterday she went to see a dentist because she thought the pain might be from a tooth but the dentist did not think there was any dental problem. 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 She was working and having ongoing discomfort. She says she has been taking Tylenol very frequently. She ultimately told her nursing automobile body repair supervisor what she was experiencing and she was. No definite fever. Patient says that all of her symptoms are on the right side. She has a sense of right-sided tooth pain in multiple teeth. She has right-sided neck pain and right-sided ear pain. No fever, sweats, chills. Patient says she has not currently on control. She has not missed any periods. Last intercourse was 2 or 3 weeks ago. She is not trying to get but she is also not on any contraceptives. Related Data Previous Rx's Medication Instructions Recorded meloxicam 15 mg tablet 15 mg PO DAILY #14 tabs 10/20/22 levofloxacin 500 mg tablet 500 mg PO DAILY #7 tabs 02/20/23 ondansetron 4 mg disintegrating 4 mg PO Q8H PRN nausea and 02/20/23 tablet vomiting #10 tabs dicyclomine 20 mg tablet 20 mg PO TID PRN abdominal pain 02/24/23 #14 tabs hydrocortisone acetate 25 mg 25 mg MI BID #12 ea 02/24/23 rectal suppository (Anusol-HC) oxycodone 5 mg tablet 5 mg PO Q6H PRN pain #20 tabs 02/24/23 cefadroxil 1 gram tablet 1,000 mg PO BID #14 tabs 08/24/23 valacyclovir 1 gram tablet 1,000 mg PO TID #21 tabs 08/24/23 Allergies Allergy/AdvReac Type Severity Reaction Status Date / Time No Known Allergies Allergy Verified 02/23/23 22:23 Review of Systems 2 Review of Systems: Yes all other systems are reviewed and are negative PMFSH Past Medical History Medical History Asthma Social History Social History Alcohol intake: never Advance Directives: No Advance Directives Information Provided: No Physical Exam ED Vital Signs: Vital Signs - 24 hr 08/24/23 07:07 Temperature 97.4 F Pulse Rate 63 Respiratory Rate 16 Blood Pressure 132/69 Pulse Oximetry 97 Oxygen Delivery Method Room Air BMI result Body Mass Index 29.8 Const Other: Patient looks as if she has an ordinarily healthy 32-year-old. She does not appear in obvious distress at rest. HENMT Other: The head and face are normal to inspection. There is a rash at the posterior neck on the right side which looks like a collection of dried vesicles. On her intraoral exam there are no abnormalities seen. No willing. Dentition appears normal. No trismus. Ears: TM's normal bilaterally and Abnormal EAC present Eyes Other: Pupils are round equal, conjunctivae clear, extraocular movements intact, no ocular abnormalities. Neck Other: The patient has a rash on the posterior aspect of the neck which is characterized primarily by a large clump of dry looking vesicles to the right of the midline. There is some tiny satellite lesions that cross the midline but the lesions are largely and primarily on the right side. There is no nuchal rigidity. The patient is exquisitely tender with palpation of the right side of the neck in the region of the anterior and posterior cervical chains but I do not appreciate any discrete lymph nodes. Resp Effort & Inspection: normal respiratory effort Auscultation: clear to auscultation bilaterally Cardio Rate: regular rate Rhythm: regular rhythm Heart sounds: S1 normal heart sound present and S2 normal heart sound present Skin Other: Is a patch of fairly dried vesicles on the back of the patient's neck mostly to the right side. The bulk of the lesions are to the right of the midline. Some tiny lesions may be on the left side of the midline. Neuro Other: Awake, alert, oriented, appropriate, neurologically intact Extrem Other: No extremity lesions Medical Decision Making Medical Decision Making MDM Narrative: The patient presents with a rash on the back of her neck and a complaint of severe pain on the right side of her face and neck. She is exquisitely tender on the right side of the neck but I do not appreciate any masses. Labs show a normal white count, sed rate, and CRP. My concern for any kind of deep space neck infection is very low. The rash on the back of the neck has the appearance of dried vesicles. Given the location of the rash and the unilateral nature of the symptoms shingles is suggested but this is not definitely a case of shingles. The patient believes the rash is a consequence of an allergic reaction to hair dye 4 days ago. Overall given the reassuring labs the I think the patient can be managed as an outpatient. She will be placed on a course of valacyclovir in case this is an unusual presentation of shingles. She will also be placed on a case of cefadroxil case there is some bacterial infectious component to her presentation although I think this is not very likely. She will be discharged with work note for the next couple of days. She should follow up with her PCP. Return to the ER if worse. The patient's serum beta-hCG was 7. I explained to her that this is probably indicative of a non state but not definitively so. She should repeat a home test a few days. Lab Data 08/24/23 08:53 08/24/23 08:53 Labs: Lab Results 08/24/23 Range/Units 08:53 WBC 7.4 (4.8-10.8) X10*3/uL RBC 4.40 (4.20-5.50) X10*6/uL Hgb 13.3 (12.0-16.0) g/dl Hct 39.0 (37.0-47.0) % MCV 88.6 (80.0-98.0) fL MCH 30.2 (27.0-33.0) pg MCHC 34.1 (31.0-35.0) g/dl RDW 12.8 (11.0-16.0) % Plt Count 354 (160-400) X10*3/uL MPV 9.3 L (9.4-12.3) fL Immature Gran % (Auto) 0.4 (0.0-0.4) % Neut % (Auto) 44.0 L (45-73) % Lymph % (Auto) 49.7 H (20-40) % [place] % (Auto) 3.8 (2-11) % Eos % (Auto) 1.7 (0-4) % Baso % (Auto) 0.4 (0-2) % Lymph # (Auto) 3.7 (1.2-4.9) X10*3/uL [place] # (Auto) 0.3 (0.1-1.2) X10*3/uL Eos # (Auto) 0.1 (0.0-0.4) X10*3/uL Baso # (Auto) 0.0 (0.0-0.2) X10*3/uL Abs Immat Gran (auto) 0.03 (0.00-0.03) X10*3/uL Absolute Neuts (auto) 3.3 (2.0-8.3) x10*3/uL Absolute Nucleated RBC 0.000 (0.0-0.012) X10*3/uL Nucleated RBC % (auto) 0.0 (0.0-0.2) /100WBC Sodium 138 (135-145) mmol/L Potassium 4.2 (3.3-5.1) mmol/L Chloride 105 (96-108) mmol/L Carbon Dioxide 24 (22-29) mmol/L Anion Gap 13 (12-20) BUN 11 (9-16) mg/dL Creatinine 0.68 (0.5-1.4) mg/dL Estim Creat Clear Calc 110.8 Estimated GFR > 60 Random Glucose 114 (60-115) mg/dL Calcium 9.7 (8.4-10.2) mg/dL Total Bilirubin 0.3 (0.0-1.0) mg/dL Direct Bilirubin 0.1 (0.0-0.5) mg/dL AST 15 (5-31) U/L ALT 15 (0-31) U/L Alkaline Phosphatase 61 (39-117) U/L C-Reactive Protein 0.29 (< or = 0.50) mg/dL Total Protein 7.6 (6.5-8.0) g/dL Albumin 4.6 (3.5-5.0) g/dL Beta HCG, Quant 7 mIU/mL Discharge Plan Discharge Clinical Impression: Neck pain on right side, Rash Patient Disposition: Home, Self-Care Instructions: Shingles (ED) Additional Instructions: The rash on the back of your neck to some degree resembles the rash of shingles. Therefore you have been prescribed valacyclovir. Please take this 3 times a day. Alternatively there may be some degree of a bacterial infection so you have been prescribed cefadroxil, an antibiotic. Please take this 2 times a day. Use acetaminophen (Tylenol) as needed for pain. Your test was equivocal. It was possibly very minimally positive. I think you should probably do a home test in a couple of days to confirm whether you are or not. If you are confirmed to not be you may also use ibuprofen. Follow up soon with your regular doctor. No work tonight. Return to the emergency room if significantly worse. Prescriptions: New cefadroxil 1 gram tablet 1,000 mg PO BID Qty: 14 0RF valacyclovir 1 gram tablet 1,000 mg PO TID Qty: 21 0RF No Action levofloxacin 500 mg tablet 500 mg PO DAILY Qty: 7 0RF ondansetron 4 mg tablet,disintegrating 4 mg PO Q8H PRN (Reason: nausea and vomiting) Qty: 10 0RF meloxicam 15 mg tablet 15 mg PO DAILY Qty: 14 0RF hydrocortisone acetate [Anusol-HC] 25 mg suppository 25 mg MI BID Qty: 12 0RF dicyclomine 20 mg tablet 20 mg PO TID PRN (Reason: abdominal pain) Qty: 14 0RF oxycodone 5 mg tablet 5 mg PO Q6H PRN (Reason: pain) Qty: 20 0RF Rx Instructions: Partial Fill upon patient request. Referrals: Gustavo Juárez MD [Physician] - (rash, possible shingles) Stand Alone Forms: Work/School Release Interventions: ED Discharge Assessment Last Done: 08/24/23 10:33 Discharge Date/Time: 08/24/23 10:33
[2023-08-24 08:58] LABS: Basophils Percent Auto 0.4 % (0-2); Eosinophils Absolute Auto 0.1 X10*3/uL (0.0-0.4); Eosinophils Percent Auto 1.7 % (0-4); Hemoglobin 13.3 g/dl (12.0-16.0); Imm Gran Abs Auto 0.03 X10*3/uL (0.00-0.03); Imm Gran Pct Auto 0.4 % (0.0-0.4); Lymphocytes Absolute Auto 3.7 X10*3/uL (1.2-4.9); Lymphocytes Percent Auto 49.7 % (20-40); MANUAL DIFF FLAG NO; Mean Corpuscular HGB Conc 34.1 g/dl (31.0-35.0); Mean Corpuscular Hemoglobin 30.2 pg (27.0-33.0); Mean Corpuscular Volume 88.6 fL (80.0-98.0); Mean Platelet Volume 9.3 fL (9.4-12.3); Monocytes Absolute Auto 0.3 X10*3/uL (0.1-1.2); Monocytes Percent Auto 3.8 % (2-11); Neutrophils Absolute Auto 3.3 x10*3/uL (2.0-8.3); Platelet Count 354 X10*3/uL (160-400); Red Cell Distribution Width 12.8 % (11.0-16.0); White Blood Count 7.4 X10*3/uL (4.8-10.8)
[2023-08-24 09:15] LABS: Alanine Aminotransferase 15 U/L (0-31); Albumin Level 4.6 g/dL (3.5-5.0); Alkaline Phosphatase 61 U/L (39-117); Anion Gap 13 (12-20); Aspartate Amino Transferase 15 U/L (5-31); Bilirubin Direct 0.1 mg/dL (0.0-0.5); Bilirubin Total 0.3 mg/dL (0.0-1.0); Blood Urea Nitrogen 11 mg/dL (9-16); C Reactive Protein 0.29 mg/dL (< or = 0.50); Calcium 9.7 mg/dL (8.4-10.2); Carbon Dioxide 24 mmol/L (22-29); Chloride 105 mmol/L (96-108); Creatinine Clr Calc Pharmacy 110.8; Estimated Glomerular Filt Rate > 60; Glucose Random 114 mg/dL (60-115); Potassium 4.2 mmol/L (3.3-5.1); Sodium 138 mmol/L (135-145); Total Protein 7.6 g/dL (6.5-8.0)
[2023-08-24 09:21] LABS: HCG Quantitative 7 mIU/mL
== END 2023-08-24 10:33 | disposition home or self-care (01) ==
PROVIDERS: Emergency Provider Emergency Medicine
DX: M54.2 Cervicalgia (principal); R21 Rash and other nonspecific skin eruption
CPT/HCPCS: 36415; 80048; 80076; 84702; 85025; 86140; 99283; 99284

== ENCOUNTER 2024-07-19 06:46 | Emergency (ER) | payer MEDICAID, SELFPAY ==
[2024-07-19 06:48] VITALS: BP 124/82; PULSE 75; RESP 18; TEMP 36.7; O2SAT 94; BMI 30.7
[2024-07-19 07:16] LABS: MANUAL DIFF FLAG NO
[2024-07-19 07:19] LABS: Appearance Urine Cloudy; Color Urine Yellow; Glucose Urine UA Negative (Negative); Leukocyte Esterase Urine Moderate (2+) (Negative); Nitrite Urine Negative (Negative); PH 6.5 (5.0-9.0); Specific Gravity - Urine >= 1.030 (1.005-1.025); UMIC TRIGGER UACC YES; Urine Blood Trace (Negative); Urine Ketones Negative (Negative); Urine Protein Trace mg/dL (Neg-Trace)
[2024-07-19 07:24] LABS: Bacteria Urine 4+ (None Seen); Hyaline Casts Urine 0-2 /LPF (0-2); Squamous Epithelial Cell Urine >20 /HPF (0-2); UACC Culture Trigger YES; WBC Urine 21-50 /HPF (0-5)
[2024-07-19 07:25] LABS: Basophils Percent Auto 0.3 % (0-2); Eosinophils Absolute Auto 0.2 X10*3/uL (0.0-0.4); Eosinophils Percent Auto 2.2 % (0-4); Hematocrit 38.1 % (37.0-47.0); Hemoglobin 13.2 g/dl (12.0-16.0); Imm Gran Abs Auto 0.05 X10*3/uL (0.00-0.03); Imm Gran Pct Auto 0.6 % (0.0-0.4); Lymphocytes Absolute Auto 3.2 X10*3/uL (1.2-4.9); Lymphocytes Percent Auto 37.1 % (20-40); Mean Corpuscular HGB Conc 34.6 g/dl (31.0-35.0); Mean Corpuscular Hemoglobin 30.8 pg (27.0-33.0); Mean Corpuscular Volume 88.8 fL (80.0-98.0); Mean Platelet Volume 9.5 fL (9.4-12.3); Monocytes Absolute Auto 0.4 X10*3/uL (0.1-1.2); Monocytes Percent Auto 4.7 % (2-11); Neutrophils Absolute Auto 4.8 x10*3/uL (2.0-8.3); Neutrophils Percent Auto 55.1 % (45-73); Platelet Count 335 X10*3/uL (160-400); Red Blood Count 4.29 X10*6/uL (4.20-5.50); Red Cell Distribution Width 12.4 % (11.0-16.0); White Blood Count 8.7 X10*3/uL (4.8-10.8)
[2024-07-19 07:43] LABS: Alanine Aminotransferase 11 U/L (0-31); Albumin Level 4.6 g/dL (3.5-5.0); Alkaline Phosphatase 54 U/L (39-117); Anion Gap 14 (12-20); Aspartate Amino Transferase 15 U/L (5-31); Bilirubin Total 0.4 mg/dL (0.0-1.0); Blood Urea Nitrogen 15 mg/dL (9-16); Calcium 9.1 mg/dL (8.4-10.2); Carbon Dioxide 22 mmol/L (22-29); Chloride 105 mmol/L (96-108); Creatinine Clr Calc Pharmacy 120.1; Estimated Glomerular Filt Rate > 60; Glucose Random 101 mg/dL (60-115); Potassium 3.8 mmol/L (3.3-5.1); Sodium 137 mmol/L (135-145); Total Protein 7.3 g/dL (6.5-8.0)
[2024-07-19 07:50] LABS: HCG Quantitative 6 mIU/mL
--- NOTE | 2024-07-19 10:17 | ED.GENADULT ---
HPI - General Adult General Chief complaint: General Medical Stated complaint: left breast has a lump Time Seen by Provider: 07/19/24 10:20 Source: patient Mode of arrival: ambulatory Limitations: no limitations History of Present Illness ED Provider: Brooke Lim NP HPI narrative: Patient is a 33-year-old female who presents emergency department for evaluation of multiple complaints. Firstly she has noticed two lumps to the bottom of her left breast. First noticed them 2 weeks ago, began to resolve but then increased in size and pain again. She has not tried any conservative treatments to this area. She denies any additional skin rashes wounds or lesions. She reports areas painful to touch. She denies any pus-like drainage fevers or chills. She additionally reports that she has been experiencing burning with urination over the past 2 weeks. She denies associated hematuria, frequency, urgency, hesitancy, nausea, vomiting, abdominal pain, back pain. She states that her menstrual cycles have been irregular recently, lasting for shorter periods in occurring at times when they should not. She does not have overt concern for however she is requesting serum blood test. She states that when she was with her son at that time it was determined that she has to uterus is and to cervix therefore making urine testing often an accurate. Related Data Previous Rx's ?Medication ?Instructions ?Recorded meloxicam 15 mg tablet 15 mg PO DAILY #14 tabs 10/20/22 levofloxacin 500 mg tablet 500 mg PO DAILY #7 tabs 02/20/23 ondansetron 4 mg disintegrating 4 mg PO Q8H PRN nausea and 02/20/23 tablet vomiting #10 tabs dicyclomine 20 mg tablet 20 mg PO TID PRN abdominal pain 02/24/23 #14 tabs hydrocortisone acetate 25 mg 25 mg CO BID #12 ea 02/24/23 rectal suppository (Anusol-HC) oxycodone 5 mg tablet 5 mg PO Q6H PRN pain #20 tabs 02/24/23 cefadroxil 1 gram tablet 1,000 mg PO BID #14 tabs 08/24/23 valacyclovir 1 gram tablet 1,000 mg PO TID #21 tabs 08/24/23 cephalexin 500 mg capsule 500 mg PO QID #28 caps 07/19/24 Allergies Allergy/AdvReac Type Severity Reaction Status Date / Time No Known Allergies Allergy Verified 07/19/24 06:48 Review of Systems Review of Systems: Yes all other systems are reviewed and are negative [facility] Past Medical History Attestation statement: The following information was validated with the patient. Source: old records reviewed Medical History Asthma Social History Social History Alcohol intake: never Advance Directives: No Advance Directives Information Provided: No Do you have a plan to hurt others: No Plan Physical Exam ED Vital Signs: Vital Signs - 24 hr 07/19/24 06:48 Temperature 98.0 F Pulse Rate 75 Respiratory Rate 18 Blood Pressure 124/82 Pulse Oximetry 94 Oxygen Delivery Method Room Air BMI result Body Mass Index 30.7 Appearance: Alert.?Oriented to person, place and time. No acute distress.?Normal affect. CVS: Heart sounds normal. Normal heart rate and rhythm.? Pulses normal.?? Respiratory: No respiratory distress.? Lung sounds clear to auscultation bilaterally?? Abdomen: Soft, nontender. Normoactive bowel sounds. No CVA tenderness. Skin: Skin warm and dry.? Normal skin color.? Two 0.25cm erythematous superficial indurations to left breast well inferior to the areola at approximately 06:00 o'clock. Tenderness upon palpation with surrounding erythema. No fluctuance. Extremities: No lower extremity edema.? No calf ttp? Neuro: Moves all extremities spontaneously. Sensation intact bilaterally. Ambulates with normal steady gait. Medical Decision Making Medical Decision Making MDM Narrative: Patient is a 33 old who presents emergency department for evaluation of dysuria as well as painful lumps to the left breast as per HPI. Pertinent exam findings as per PE portion of this note. Regarding the left breast, this appears to be a superficial infection, there is no induration or expressible purulence to suggest an acute abscess, they are very small the surrounding erythema concerning for cellulitis. I discussed conservative treatment including warm moist compresses, oral antibiotics, and monitoring for development abscess. Does not appear to be a more deep viable lump upon palpation however she does admit that she has not had any prior routine mammogram screening, given her age I would not otherwise anticipate that she should have. Advised that should her symptoms not resolve with antibiotics or worsen in any way she should speak with her primary care doctor about having a mammogram performed. She may use OTC analgesics for pain management. Regarding her dysuria, appears to have urinary tract infection with microscopic hematuria. Her serum hCG level is critically elevated at 6, she was seen in the emergency department in August of 2023 where she similarly had a detectable level however at 7. She states that she perform no subsequent home testing, however she does not currently appear to be added turn gestation if this was previously a positive that pursued. I did discuss with her that there is a potential of early though at this level there is no indication for ultrasound imaging. I do suggest that she perform subsequent at-home testing, and follow-up with her photo cartographer provider for further evaluation treatment regarding her persistently detected minimal levels of hCG. Differential Diagnosis Differential Diagnoses: The differential diagnosis associated with the presentation includes (See narrative above) Lab Data MDM Lab Attestation statement: I reviewed the patient's lab results. CBC is without leukocytosis anemia or thrombocytopenia. No electrolyte derangement. No KAREEM. See above regarding urinalysis and hCG 07/19/24 07:10 07/19/24 07:10 Labs: Lab Results 07/19/24 Range/Units 07:10 WBC 8.7 (4.8-10.8) X10*3/uL RBC 4.29 (4.20-5.50) X10*6/uL Hgb 13.2 (12.0-16.0) g/dl Hct 38.1 (37.0-47.0) % MCV 88.8 (80.0-98.0) fL MCH 30.8 (27.0-33.0) pg MCHC 34.6 (31.0-35.0) g/dl RDW 12.4 (11.0-16.0) % Plt Count 335 (160-400) X10*3/uL MPV 9.5 (9.4-12.3) fL Immature Gran % (Auto) 0.6 H (0.0-0.4) % Neut % (Auto) 55.1 (45-73) % Lymph % (Auto) 37.1 (20-40) % [place] % (Auto) 4.7 (2-11) % Eos % (Auto) 2.2 (0-4) % Baso % (Auto) 0.3 (0-2) % Lymph # (Auto) 3.2 (1.2-4.9) X10*3/uL [place] # (Auto) 0.4 (0.1-1.2) X10*3/uL Eos # (Auto) 0.2 (0.0-0.4) X10*3/uL Baso # (Auto) 0.0 (0.0-0.2) X10*3/uL Abs Immat Gran (auto) 0.05 H (0.00-0.03) X10*3/uL Absolute Neuts (auto) 4.8 (2.0-8.3) x10*3/uL Absolute Nucleated RBC 0.000 (0.0-0.012) X10*3/uL Nucleated RBC % (auto) 0.0 (0.0-0.2) /100WBC Sodium 137 (135-145) mmol/L Potassium 3.8 (3.3-5.1) mmol/L Chloride 105 (96-108) mmol/L Carbon Dioxide 22 (22-29) mmol/L Anion Gap 14 (12-20) BUN 15 (9-16) mg/dL Creatinine 0.63 (0.5-1.4) mg/dL Estim Creat Clear Calc 120.1 Estimated GFR > 60 Random Glucose 101 (60-115) mg/dL Calcium 9.1 D (8.4-10.2) mg/dL Total Bilirubin 0.4 (0.0-1.0) mg/dL AST 15 (5-31) U/L ALT 11 (0-31) U/L Alkaline Phosphatase 54 (39-117) U/L Total Protein 7.3 (6.5-8.0) g/dL Albumin 4.6 (3.5-5.0) g/dL Beta HCG, Quant 6 mIU/mL Urine Color Yellow Urine Appearance Cloudy Urine pH 6.5 (5.0-9.0) Ur Specific [place] >= 1.030 H (1.005-1.025) Urine Protein Trace (Neg-Trace) mg/dL Urine Glucose (UA) Negative (Negative) mg/dL Urine Ketones Negative (Negative) mg/dL Urine Blood Trace H (Negative) Urine Nitrite Negative (Negative) Ur Leukocyte Esterase Moderate (2+) H (Negative) Urine RBC 3-5 H (0-2) /HPF Urine WBC 21-50 H (0-5) /HPF Ur Squamous Epith Cells >20 (0-2) /HPF Urine Bacteria 4+ (None Seen) Hyaline Casts 0-2 (0-2) /LPF External Record Review External record reviewed: Outpatient record Prescription Management I considered prescription management with: Pain Medication and Antibiotic Discharge Plan Discharge Clinical Impression: UTI (urinary tract infection), Rash Patient Disposition: Home, Self-Care Instructions: Urinary Tract Infection in Women (DC), Acute Rash (ED) Additional Instructions: As discussed, the rash beneath your left breast is concerning for a skin infection, and started on a course of antibiotic that cover this infection as well as tract infection. Please complete the entire course. Apply warm moist compresses to the left breast. If they are begins to be any pus-like drainage or appearance of a white head you may consider manually expressing this to relief the pus from this area. Please follow-up with your primary care provider especially should this rash continued despite course of antibiotics. They may consider further imaging of the breast for evaluation. Additionally, I suggest that you follow-up with your photo cartographer doctor, you were seen in August of 2023 where a serum hCG level was detectable at a level of 7, similarly today it is 6. This is an equivocal finding, it is minimally positive. It would not be possible that this is a persistent since August of this year as you would be well past turn. However, there was a subtle possibility for . I would recommend performing home testing and follow-up with your photo cartographer as discussed. You can take Tylenol 500 mg, 2 tablets (1,000mg) every 4-6 hours as needed for pain, but not to exceed 3 doses daily (3,000mg). I would avoid the use of ibuprofen until you are confirmed not to be . ? Prescriptions: New cephalexin 500 mg capsule 500 mg PO QID Qty: 28 0RF No Action levofloxacin 500 mg tablet 500 mg PO DAILY Qty: 7 0RF ondansetron 4 mg tablet,disintegrating 4 mg PO Q8H PRN (Reason: nausea and vomiting) Qty: 10 0RF cefadroxil 1 gram tablet 1,000 mg PO BID Qty: 14 0RF valacyclovir 1 gram tablet 1,000 mg PO TID Qty: 21 0RF meloxicam 15 mg tablet 15 mg PO DAILY Qty: 14 0RF hydrocortisone acetate [Anusol-HC] 25 mg suppository 25 mg CO BID Qty: 12 0RF dicyclomine 20 mg tablet 20 mg PO TID PRN (Reason: abdominal pain) Qty: 14 0RF oxycodone 5 mg tablet 5 mg PO Q6H PRN (Reason: pain) Qty: 20 0RF Rx Instructions: Partial Fill upon patient request. Referrals: Physician,Unknown J [Primary Care Provider] - Print Language: Haitian
[2024-07-19 11:03] VITALS: BP 124/82; PULSE 75; RESP 18; TEMP 36.7; O2SAT 94
== END 2024-07-19 11:03 | disposition home or self-care (01) ==
PROVIDERS: Emergency Provider Emergency Medicine
DX: N39.0 Urinary tract infection, site not specified (principal); R21 Rash and other nonspecific skin eruption; Z79.899 Other long term (current) drug therapy
CPT/HCPCS: 36415; 80053; 81001; 84702; 85025; 87086; 99282; 99283

== ENCOUNTER 2024-08-09 00:15 | Emergency (ER) | payer MEDICAID, SELFPAY ==
--- NOTE | ~2024-08-09 | US_ITS ---
EXAMINATION: US OBSTETRICAL ULTRASOUND CLINICAL INFORMATION: Seven-week . Left-sided abdominal pain. History of didelphys uterus. COMPARISON: None available. LMP: Not provided.. Gestational age by maternal dates is no provided. Estimated date of delivery by maternal dates is no provided. TECHNIQUE: Real-time transabdominal and transvaginal obstetric pelvic ultrasound performed using a curvilinear transducer, grayscale and color Doppler technique. FINDINGS: There is a single intrauterine gestational sac with visible yolk sac, embryo/fetus, and cardiac activity. There is no significant subchorionic hemorrhage or hematoma. HR: 105 beats per minute. CRL (crown rump length): 0.21 cm (5 +/- 6 days). BURT (estimated date of delivery): 04/03/2025 +/- 4 days. MATERNAL ADNEXA: The right maternal ovary measures 4 x 3 x 2 cm. Volume is 14 cc. The left maternal ovary measures 2 x 2 x 2 cm. Volume is 6 cc. There is no significant maternal adnexal mass. No maternal pelvic ascites. US/US OB pelvic and transvaginal IMPRESSION: 1. Single intrauterine gestation with ultrasound gestational age of 5 weeks and 6 days +/- 4 days. seen within the right uterus. 2. Estimated date of delivery is 04/03/2025 +/- 4 days. 3. No maternal adnexal mass or pelvic ascites. Electronically signed by: Claudio Duran MD 08/09/2024 09:12 AM [facility] [place]
[2024-08-09 00:24] VITALS: BP 127/78; PULSE 77; RESP 20; TEMP 36.8; O2SAT 97; BMI 29.2
[2024-08-09 01:10] LABS: Basophils Percent Auto 0.3 % (0-2); Eosinophils Absolute Auto 0.1 X10*3/uL (0.0-0.4); Eosinophils Percent Auto 1.2 % (0-4); Hematocrit 37.3 % (37.0-47.0); Hemoglobin 13.2 g/dl (12.0-16.0); Imm Gran Abs Auto 0.03 X10*3/uL (0.00-0.03); Imm Gran Pct Auto 0.3 % (0.0-0.4); Lymphocytes Absolute Auto 4.6 X10*3/uL (1.2-4.9); Lymphocytes Percent Auto 47.1 % (20-40); MANUAL DIFF FLAG SCAN; Mean Corpuscular HGB Conc 35.4 g/dl (31.0-35.0); Mean Corpuscular Hemoglobin 30.8 pg (27.0-33.0); Mean Corpuscular Volume 87.1 fL (80.0-98.0); Mean Platelet Volume 9.3 fL (9.4-12.3); Monocytes Absolute Auto 0.5 X10*3/uL (0.1-1.2); Monocytes Percent Auto 4.9 % (2-11); Neutrophils Absolute Auto 4.5 x10*3/uL (2.0-8.3); Neutrophils Percent Auto 46.2 % (45-73); Platelet Count 350 X10*3/uL (160-400); Red Blood Count 4.28 X10*6/uL (4.20-5.50); Red Cell Distribution Width 12.3 % (11.0-16.0); SCAN SMEAR FLAG 1; White Blood Count 9.8 X10*3/uL (4.8-10.8)
--- NOTE | 2024-08-09 01:40 | PC.NURSE ---
Labs drawn at 01:04am and sent for analysis. Awaiting results.
[2024-08-09 01:44] LABS: Alanine Aminotransferase 10 U/L (0-31); Albumin Level 4.4 g/dL (3.5-5.0); Anion Gap 13 (12-20); Aspartate Amino Transferase 15 U/L (5-31); Bilirubin Total 0.5 mg/dL (0.0-1.0); Blood Urea Nitrogen 9 mg/dL (9-16); Calcium 9.6 mg/dL (8.4-10.2); Carbon Dioxide 21 mmol/L (22-29); Chloride 107 mmol/L (96-108); Creatinine Clr Calc Pharmacy 119.2; Estimated Glomerular Filt Rate > 60; Glucose Random 93 mg/dL (60-115); Potassium 3.8 mmol/L (3.3-5.1); Sodium 137 mmol/L (135-145); Total Protein 7.4 g/dL (6.5-8.0)
[2024-08-09 01:53] LABS: Alkaline Phosphatase 54 U/L (39-117)
[2024-08-09 02:04] LABS: HCG Quantitative 35869 mIU/mL
[2024-08-09 02:07] LABS: SLIDE REVIEW VERIFIED
[2024-08-09 02:41] VITALS: BP 134/76; PULSE 67; RESP 16; TEMP 36.8; O2SAT 100
--- NOTE | 2024-08-09 02:57 | PC.NURSE ---
Patient reports hx of miscarriage. 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 Left uterus has previously had miscarriages & pain. Pt is currently 7 weeks , states that pain is left sided and she believes that this is in her left uterus based on symptoms and is concerned about her pain. Awaiting ED provider evaluation. Pt states that she wants to have an ultrasound for peace of mind . Semi-fowlers position, given pillow and blanket for comfort. Call lala within reach.
--- NOTE | 2024-08-09 03:09 | PC.NURSE ---
Patient ambulates with steady gait. Providing urine specimen at this time.
[2024-08-09 04:05] LABS: Appearance Urine Clear; Color Urine Yellow; Glucose Urine UA Negative (Negative); Leukocyte Esterase Urine Small (1+) (Negative); Nitrite Urine Negative (Negative); Specific Gravity - Urine 1.015 (1.005-1.025); UMIC TRIGGER UACC YES; Urine Blood Trace (Negative); Urine Ketones Negative (Negative); Urine Protein Negative (Neg-Trace)
[2024-08-09 04:06] LABS: UPreg QC Valid YES; Urine Pregnancy POSITIVE (NEGATIVE)
[2024-08-09 04:11] LABS: Bacteria Urine 1+ (None Seen); Hyaline Casts Urine 0-2 /LPF (0-2); RBC Urine 0-2 /HPF (0-2); UACC Culture Trigger YES
[2024-08-09] MEDS: Acetaminophen 325 MG TABLET 650 MG PO (06:05)
--- NOTE | 2024-08-09 06:06 | PC.NURSE ---
medicated per mar, pt awaiting to be seen by provider
--- NOTE | 2024-08-09 06:07 | PC.NURSE ---
pt give Tylenol for 10/10 lower left abd pain
[2024-08-09 06:10] VITALS: BP 135/67; PULSE 64; RESP 16; O2SAT 100
--- NOTE | 2024-08-09 07:32 | ED.GENADULT ---
HPI - General Adult General Chief complaint: OB Stated complaint: 7 weeks preg pain in left side uterus Time Seen by Provider: 08/09/24 06:38 Source: patient Mode of arrival: ambulatory Limitations: no limitations History of Present Illness ED Provider: Brooke Lim NP HPI narrative: Patient is a 33-year-old female who presents emergency department for evaluation. She is a G5 T1 L2 with LMP 06/25/2024 currently approximated to be 7 weeks gestation who presents to the emergency department for evaluation. She reports that she saw her OB provider on Monday of this week; 4 days ago, had confirmation of . She has an appointment as well as an ultrasound scheduled for the end of this month does not recall the exact date. However while at work yesterday evening she reports that she began developing severe pain on the left side of her abdomen described as a sharp cramping sensation. She reports that the pain was so significant that she was not able to stand or walk. She received Tylenol before my evaluation which she reports has minimally improved the pain. She denies any fevers, chills, dysuria, urinary frequency/urgency/hesitancy, abnormal vaginal discharge or bleeding, concern for sexually transmitted infections. She does admit that she has experienced miscarriages in the past and she is worried that this may be an initial sign. Denies associated nausea, vomiting, back pain. Related Data Previous Rx's ?Medication ?Instructions ?Recorded meloxicam 15 mg tablet 15 mg PO DAILY #14 tabs 10/20/22 levofloxacin 500 mg tablet 500 mg PO DAILY #7 tabs 02/20/23 ondansetron 4 mg disintegrating 4 mg PO Q8H PRN nausea and 02/20/23 tablet vomiting #10 tabs dicyclomine 20 mg tablet 20 mg PO TID PRN abdominal pain 02/24/23 #14 tabs hydrocortisone acetate 25 mg 25 mg NV BID #12 ea 02/24/23 rectal suppository (Anusol-HC) oxycodone 5 mg tablet 5 mg PO Q6H PRN pain #20 tabs 02/24/23 cefadroxil 1 gram tablet 1,000 mg PO BID #14 tabs 08/24/23 valacyclovir 1 gram tablet 1,000 mg PO TID #21 tabs 08/24/23 cephalexin 500 mg capsule 500 mg PO QID #28 caps 07/19/24 cefuroxime axetil 250 mg tablet 250 mg PO BID #10 tabs 08/09/24 Allergies Allergy/AdvReac Type Severity Reaction Status Date / Time No Known Allergies Allergy Verified 08/09/24 00:27 Review of Systems Review of Systems: Yes all other systems are reviewed and are negative [facility] Past Medical History Attestation statement: The following information was validated with the patient. Source: old records reviewed Medical History Asthma Social History Social History Alcohol intake: never Smoked in Last 30 Days: No Use of substances other than those prescribed or required for medical reasons: No Advance Directives: No Advance Directives Information Provided: Yes Do you have a plan to hurt others: No Plan Physical Exam ED Vital Signs: Vital Signs - 24 hr 08/09/24 00:24 08/09/24 02:41 08/09/24 06:10 Temperature 98.2 F 98.2 F Pulse Rate 77 67 64 Respiratory Rate 20 16 16 Blood Pressure 127/78 134/76 135/67 Pulse Oximetry 97 100 100 Oxygen Delivery Method Room Air Room Air Room Air 08/09/24 08:38 Temperature Pulse Rate 82 Respiratory Rate 16 Blood Pressure 125/85 Pulse Oximetry 96 Oxygen Delivery Method Room Air BMI result Body Mass Index 29.2 Appearance: Alert.?Oriented to person, place and time. No acute distress.?Normal affect. CVS: Heart sounds normal. Normal heart rate and rhythm.? Pulses normal.?? Respiratory: No respiratory distress.? Lung sounds clear to auscultation bilaterally?? Abdomen: Soft with left lower quadrant tenderness upon palpation. Normoactive bowel sounds. No pulsatile mass.??No CVAT. Skin: Skin warm and dry.? Normal skin color.? Extremities: No lower extremity edema.? Neuro: Moves all extremities spontaneously. Sensation intact bilaterally. Ambulates with normal steady gait. Medications Administered Discontinued Medications Generic Name Dose Route Start Last Admin Trade Name Freq PRN Reason Stop Dose Admin Acetaminophen 650 mg 08/09/24 05:56 08/09/24 06:05 Acetaminophen 325 Mg Tablet PO 08/09/24 05:57 650 mg ONCE ONE Administration Medical Decision Making Medical Decision Making MDM Narrative: Patient is a 33-year-old female G5 T1 L2 LMP 06/25/2024 reports being 7 weeks gestation who has yet to have outpatient Ob ultrasound presenting for evaluation of left lower abdominal pain as per HPI. She declines to have internal pelvic examination she denies any active vaginal discharge or bleeding. I reviewed serum labs and urinalysis obtained prior to my assumption of care; CBC is without leukocytosis anemia no thrombocytopenia. No electrolyte derangement. No KAREEM. LFTs within normal range. HCG corresponding with anticipated level of gestation. Urinalysis with trace microscopic hematuria 1+ leukocyte esterase as well as urine WBCs and 1+ urine bacteria, there is additionally squamous epithelial cells present. In review, she has had prior urinalysis which in fact appear worse than this current 1 with urine cultures revealing urogenital contamination. However given she is experiencing abdominal pain and she is I did discuss with her initiating course of antibiotics for bacteriuria during . I did discuss with her that she may likely have a urine culture that does not result with a true urinary infection however given her state of be ill advised to not consider treatment at this time. She is amenable to initiating a course of antibiotics. She has a no CVAT to suggest renal colic secondary to calculi or pyelonephritis. Given her active and her associated pain obtaining ultrasound to evaluate for intrauterine as opposed to ectopic as she does have unilateral abdominal tenderness upon palpation. She denies concern for sexually transmitted infection and states she was recently tested she declines to have repeat testing. Denies history of ovarian cysts, lower suspicion for tubo-ovarian abscess/ PID, ovarian torsion, ruptured ovarian cyst. Ultrasound revealing an intrauterine gestation no evidence of ectopic . Patient made aware of these findings, advised outpatient follow-up with OBGYN and strict return precautions. All questions answered. Differential Diagnosis Differential Diagnoses: The differential diagnosis associated with the presentation includes (See narrative above) Admission/Observation Consideration of admission/observation: Escalation of care including admission/observation considered (See narrative above and course narrative for further detail) Lab Data [facility] Lab Attestation statement: I reviewed the patient's lab results. (See narrative above) 08/09/24 01:04 08/09/24 01:04 Labs: Lab Results 08/09/24 08/09/24 Range/Units 01:04 03:36 WBC 9.8 (4.8-10.8) X10*3/uL RBC 4.28 (4.20-5.50) X10*6/uL Hgb 13.2 (12.0-16.0) g/dl Hct 37.3 (37.0-47.0) % MCV 87.1 (80.0-98.0) fL MCH 30.8 (27.0-33.0) pg MCHC 35.4 H (31.0-35.0) g/dl RDW 12.3 (11.0-16.0) % Plt Count 350 (160-400) X10*3/uL MPV 9.3 L (9.4-12.3) fL Immature Gran % (Auto) 0.3 (0.0-0.4) % Neut % (Auto) 46.2 (45-73) % Lymph % (Auto) 47.1 H (20-40) % Glascock % (Auto) 4.9 (2-11) % Eos % (Auto) 1.2 (0-4) % Baso % (Auto) 0.3 (0-2) % Lymph # (Auto) 4.6 (1.2-4.9) X10*3/uL Glascock # (Auto) 0.5 (0.1-1.2) X10*3/uL Eos # (Auto) 0.1 (0.0-0.4) X10*3/uL Baso # (Auto) 0.0 (0.0-0.2) X10*3/uL Abs Immat Gran (auto) 0.03 (0.00-0.03) X10*3/uL Absolute Neuts (auto) 4.5 (2.0-8.3) x10*3/uL Absolute Nucleated RBC 0.000 (0.0-0.012) X10*3/uL Nucleated RBC % (auto) 0.0 (0.0-0.2) /100WBC Smear Tech's Comments VERIFIED Sodium 137 (135-145) mmol/L Potassium 3.8 (3.3-5.1) mmol/L Chloride 107 (96-108) mmol/L Carbon Dioxide 21 L (22-29) mmol/L Anion Gap 13 (12-20) BUN 9 (9-16) mg/dL Creatinine 0.62 (0.5-1.4) mg/dL Estim Creat Clear Calc 119.2 Estimated GFR > 60 Random Glucose 93 (60-115) mg/dL Calcium 9.6 (8.4-10.2) mg/dL Total Bilirubin 0.5 (0.0-1.0) mg/dL AST 15 (5-31) U/L ALT 10 (0-31) U/L Alkaline Phosphatase 54 (39-117) U/L Total Protein 7.4 (6.5-8.0) g/dL Albumin 4.4 (3.5-5.0) g/dL Beta HCG, Quant 18859 mIU/mL Urine Color Yellow Urine Appearance Clear Urine pH 6.0 (5.0-9.0) Ur Specific Maybell 1.015 (1.005-1.025) Urine Protein Negative (Neg-Trace) mg/dL Urine Glucose (UA) Negative (Negative) mg/dL Urine Ketones Negative (Negative) mg/dL Urine Blood Trace H (Negative) Urine Nitrite Negative (Negative) Ur Leukocyte Esterase Small (1+) H (Negative) Urine RBC 0-2 (0-2) /HPF Urine WBC 6-10 H (0-5) /HPF Ur Squamous Epith Cells 6-10 (0-2) /HPF Urine Bacteria 1+ (None Seen) Hyaline Casts 0-2 (0-2) /LPF Urine Test POSITIVE H (NEGATIVE) Independent Interpretation I performed an independent interpretation of an: Ultrasound (Intrauterine gestation) Radiology Impression Discussion of test interpretation with radiology: I have reviewed the radiologist's reading. Radiologist Impression: US/US OB pelvic and transvaginal IMPRESSION: 1. Single intrauterine gestation with ultrasound gestational age of 5 weeks and 6 days +/- 4 days. seen within the right uterus. 2. Estimated date of delivery is 04/03/2025 +/- 4 days. 3. No maternal adnexal mass or pelvic ascites. External Record Review External record reviewed: Outpatient record Prescription Management I considered prescription management with: Antibiotic Discharge Plan Discharge Clinical Impression: Abdominal pain during in first trimester, Bacteriuria Patient Disposition: Home, Self-Care Instructions: Abdominal Pain in (ED), Urinary Tract Infection in (ED) Additional Instructions: Ultrasound does not show evidence of ectopic which is very reassuring. Indicates an intrauterine which is where the should be, with ultrasound gestational age of 5 weeks and 6 days plus/-4 days. As we discussed there can be a variation in this date as the initial calculated gestation or how far along you are in the is based off of your last menstrual period and not exactly the date of conception/ovulation. Furthermore, as mentioned your urinalysis today continues to indicate the presence of bacteria in the urine you have had similar and in fact worse appearing urine in the past which have resulted with a urine culture of urogenital bacterial fang contamination. Since you were not having particularly urinary tract symptoms, it is likely that this may again be the case. However given your state it is recommended that you be treated with a course of antibiotics until urine culture confirms that this is not a true urinary tract infection. Please be sure to contact your OB provider to arrange for further follow-up. You may return with any new or worsening symptoms or concerns Prescriptions: New cefuroxime axetil 250 mg tablet 250 mg PO BID Qty: 10 0RF No Action levofloxacin 500 mg tablet 500 mg PO DAILY Qty: 7 0RF ondansetron 4 mg tablet,disintegrating 4 mg PO Q8H PRN (Reason: nausea and vomiting) Qty: 10 0RF cefadroxil 1 gram tablet 1,000 mg PO BID Qty: 14 0RF valacyclovir 1 gram tablet 1,000 mg PO TID Qty: 21 0RF cephalexin 500 mg capsule 500 mg PO QID Qty: 28 0RF meloxicam 15 mg tablet 15 mg PO DAILY Qty: 14 0RF hydrocortisone acetate [Anusol-HC] 25 mg suppository 25 mg NV BID Qty: 12 0RF dicyclomine 20 mg tablet 20 mg PO TID PRN (Reason: abdominal pain) Qty: 14 0RF oxycodone 5 mg tablet 5 mg PO Q6H PRN (Reason: pain) Qty: 20 0RF Rx Instructions: Partial Fill upon patient request. Referrals: Tamiko Mejia PA [Primary Care Provider] - Print Language: Kyrgyz
[2024-08-09 08:38] VITALS: BP 125/85; PULSE 82; RESP 16; O2SAT 96
[2024-08-09 10:28] VITALS: BP 125/85; PULSE 82; RESP 16; TEMP 36.6; O2SAT 96
== END 2024-08-09 10:31 | disposition home or self-care (01) ==
PROVIDERS: Emergency Provider Emergency Medicine; PCP Student in an Organized Health Care Education/Training Program
DX: O26.891 Other specified pregnancy related conditions, first trimester (principal); R10.32 Left lower quadrant pain; R82.71 Bacteriuria; Z3A.01 Less than 8 weeks gestation of pregnancy
CPT/HCPCS: 36415; 76801; 76817; 80053; 81001; 81003; 81025; 84702; 85025; 87086; 99284